=== PATIENT | female | born 1935 | race Caucasian/White ===

== ENCOUNTER 2016-12-03 21:04 | Emergency (ER) | payer MEDICARE, OTHER ==
[~2016-12-03] VITALS: Ht 167.6 cm; Wt 73.5 kg
[2016-12-03 22:11] VITALS: BP 150/78
[2016-12-03] MEDS ORDERED: MORPHINE SULFATE 4 MG/ML SYRG ONE (23:27)
[2016-12-03] MEDS ORDERED: MORPHINE SULFATE 4 MG/ML SYRG IV ONE (23:30)
[2016-12-03] MEDS ORDERED: ONDANSETRON HCL 4 MG/2 ML VIAL IV ONE (23:30)
== END 2016-12-04 02:28 | disposition home or self-care (01) ==
LOC: ER 21:04
DX: S52.132A Displaced fracture of neck of left radius, initial encounter for closed fracture (principal); S52.612A Displaced fracture of left ulna styloid process, initial encounter for closed fracture; K21.9 Gastro-esophageal reflux disease without esophagitis; W19.XXXA Unspecified fall, initial encounter; Y93.89 Activity, other specified; Y99.8 Other external cause status; Y92.89 Other specified places as the place of occurrence of the external cause
CPT/HCPCS: 29125; 73070; 73090; 73100; 73120; 73560; 96374; 96375; 99284; J2270; J2405

== ENCOUNTER 2021-09-28 18:41 | Emergency (ER) | payer MEDICARE ==
[~2021-09-28] VITALS: Ht 160 cm; Wt 68.0 kg
[2021-09-28 18:52] VITALS: BP 134/78
== END 2021-09-30 05:43 | disposition left against medical advice (07) ==
LOC: ER 18:43
DX: R06.02 Shortness of breath (principal); Z53.21 Procedure and treatment not carried out due to patient leaving prior to being seen by health care provider
CPT/HCPCS: 71045; 80053; 84484

== ENCOUNTER 2022-09-09 20:18 | Inpatient (IN) | payer MEDICARE ==
[~2022-09-09] VITALS: Ht 160 cm; Wt 68.1 kg
[2022-09-09 21:19] LABS: Basophils # (auto) 0.1 10 ^3/uL (0-0.2); Basophils % (auto) 1.3 % (0.0-2.0); Eosinophils # (auto) 0.3 10 ^3/uL (0-0.8); Eosinophils % (auto) 3.3 % (0.0-7.0); Hematocrit 43.2 % (36.0-46.0); Hemoglobin 14.7 g/dL (12.2-16.2); Lymphocytes % (auto) 25.3 % (10.0-50.0); Mean Corpuscular Hemoglobin 31.1 pg (28.0-32.0); Mean Corpuscular Volume 91.4 fL (80.0-100.0); Monocytes # (auto) 0.7 10 ^3/uL (0-1.3); Monocytes % (auto) 9.4 % (0.0-12.0); Neutrophils # (auto) 4.8 10 ^3/uL (1.6-8.6); Neutrophils % (auto) 60.7 % (37.0-80.0); Nucleated Red Blood Cells % 0.1 %; Red Blood Cells 4.72 10^6/uL (4.0-5.20); Red Cell Distribution Width 15.1 % (11.8-14.3); White Blood Cell 7.8 10^3/uL (4.4-10.8)
[2022-09-09 21:32] LABS: INR 1.02 (0.9-1.15); Partial Thromboplastin Time 24.1 sec (24.6-33.4)
[2022-09-09 23:02] LABS: Calcium 9.2 mg/dL (8.5-10.1); Potassium 3.8 mmol/L (3.5-5.1)
[2022-09-09 23:05] LABS: Albumin 3.4 g/dL (3.4-5.0); BUN/Creatinine Ratio 21.7; Magnesium 2.1 mg/dL (1.6-2.6)
[2022-09-09] MEDS ORDERED: SODIUM CHLORIDE 0.9% 500 ML IV ONE (23:15)
[2022-09-09] MEDS ORDERED: ONDANSETRON HCL 4 MG/2 ML VIAL IV ONE (23:15)
[2022-09-09] MEDS ORDERED: HYDROmorphone HCL 2 MG/ML VL/or syr IV ONE (23:15)
[2022-09-09] MEDS ORDERED: IOHEXOL 300 MG/ML 100ML BOTTLE IJ ONE (23:18)
[2022-09-10] MEDS ORDERED: DOCUSATE SOD 100 MG CAP PO PRN (04:45)
[2022-09-10] MEDS ORDERED: ACETAMINOPHEN 325 MG TAB PO PRN (04:45)
[2022-09-10] MEDS ORDERED: ALUM & MAG HYDROX-SIMETH LIQ(MAALOX) 30 ML PO PRN (04:45)
[2022-09-10] MEDS ORDERED: HYDROmorphone HCL 2 MG/ML VL/or syr IV PRN ×2 (04:45→14:30)
[2022-09-10] MEDS ORDERED: MORPHINE SULFATE INJ 2 MG/ml SYRG IV PRN (04:45)
[2022-09-10] MEDS ORDERED: ONDANSETRON HCL 4 MG/2 ML VIAL IV PRN (04:45)
[2022-09-10] MEDS ORDERED: HYDROcodone-ACET 5/325MG TAB PO PRN (04:45)
[2022-09-10] MEDS: SODIUM CHLORIDE 0.9% 1,000 ML IV SCH ×2 (05:12→21:47)
[2022-09-10] MEDS ORDERED: ALBUTEROL SULF HFA 90MCG INH 200DOSE IN PRN (05:15)
[2022-09-10 07:23] LABS: Basophils # (auto) 0.1 10 ^3/uL (0-0.2); Basophils % (auto) 0.8 % (0.0-2.0); Eosinophils # (auto) 0.2 10 ^3/uL (0-0.8); Eosinophils % (auto) 2.6 % (0.0-7.0); Hematocrit 37.3 % (36.0-46.0); Hemoglobin 13.1 g/dL (12.2-16.2); Lymphocytes # (auto) 1.7 10 ^3/uL (0.4-5.4); Lymphocytes % (auto) 21.8 % (10.0-50.0); Mean Corpuscular Hemoglobin 32.2 pg (28.0-32.0); Mean Corpuscular Hgb Conc. 35.2 g/dL (32.0-36.0); Mean Corpuscular Volume 91.6 fL (80.0-100.0); Monocytes # (auto) 0.8 10 ^3/uL (0-1.3); Monocytes % (auto) 10.4 % (0.0-12.0); Neutrophils # (auto) 5.1 10 ^3/uL (1.6-8.6); Neutrophils % (auto) 64.4 % (37.0-80.0); Nucleated Red Blood Cells % 0.1 %; Red Blood Cells 4.07 10^6/uL (4.0-5.20); Red Cell Distribution Width 14.6 % (11.8-14.3); White Blood Cell 7.9 10^3/uL (4.4-10.8)
[2022-09-10 07:45] LABS: BUN/Creatinine Ratio 15.3; Calcium 8.6 mg/dL (8.5-10.1); Potassium 4.1 mmol/L (3.5-5.1)
[2022-09-10 08:58] VITALS: BP 102/57
[2022-09-10 09:00] VITALS: BP 102/57
[2022-09-10] MEDS: CHOLECALCIFEROL (VITD3) 2,000 UNIT CAP/TAB PO SCH (10:05)
[2022-09-10] MEDS: ASCORBIC ACID 1,000 MG TAB PO SCH (10:05)
[2022-09-10] MEDS: ZINC SULFATE 220mg CAP or TAB PO SCH (10:05)
[2022-09-10 12:43] VITALS: BP 124/62
[2022-09-10] MEDS ORDERED: CHOL1TAB30 PO (14:34)
[2022-09-10] MEDS ORDERED: LEVO75TA6 PO (14:34)
[2022-09-10 17:00] VITALS: BP 125/51
[2022-09-10 19:30] VITALS: BP 128/73
[2022-09-10] MEDS ORDERED: HYDROcodone-ACET 10/325MG TAB PO PRN (20:30)
[2022-09-10 22:00] VITALS: BP 128/73
[2022-09-11 05:00] VITALS: BP 119/58
[2022-09-11 09:00] VITALS: BP 103/43
[2022-09-11] MEDS: ASCORBIC ACID 1,000 MG TAB PO SCH ×2 (10:18→11:41)
[2022-09-11] MEDS: ZINC SULFATE 220mg CAP or TAB PO SCH (10:18)
[2022-09-11] MEDS: CHOLECALCIFEROL (VITD3) 2,000 UNIT CAP/TAB PO SCH (10:18)
[2022-09-11 13:12] VITALS: BP 110/51
[2022-09-11] MEDS: SODIUM CHLORIDE 0.9% 1,000 ML IV SCH (14:05)
[2022-09-11 16:39] VITALS: BP 128/71
[2022-09-11 22:00] VITALS: BP 125/63
[2022-09-12] MEDS: SODIUM CHLORIDE 0.9% 1,000 ML IV SCH ×2 (00:35→17:28)
[2022-09-12 05:00] VITALS: BP 120/66
[2022-09-12 09:00] VITALS: BP 107/57
[2022-09-12] MEDS: CHOLECALCIFEROL (VITD3) 2,000 UNIT CAP/TAB PO SCH (09:57)
[2022-09-12] MEDS: ZINC SULFATE 220mg CAP or TAB PO SCH (09:57)
[2022-09-12] MEDS: ASCORBIC ACID 1,000 MG TAB PO SCH (09:59)
[2022-09-12 13:00] VITALS: BP 127/70
[2022-09-12 17:00] VITALS: BP 115/52
[2022-09-12 20:00] VITALS: BP 122/61
[2022-09-12 22:00] VITALS: BP 122/61
[2022-09-13 05:00] VITALS: BP 107/65
[2022-09-13] MEDS: CHOLECALCIFEROL (VITD3) 2,000 UNIT CAP/TAB PO SCH (08:41)
[2022-09-13] MEDS: ZINC SULFATE 220mg CAP or TAB PO SCH (08:41)
[2022-09-13] MEDS: ASCORBIC ACID 1,000 MG TAB PO SCH (08:42)
[2022-09-13 09:28] VITALS: BP 126/67
[2022-09-13 12:36] VITALS: BP 139/78
[2022-09-13 12:44] VITALS: BP_SYST 138; BP_SYST 139; BP_DIAS 78
== END 2022-09-13 15:48 | disposition home or self-care (01) | DRG 604 ==
LOC: EDUNIT# 20:18 → ER 20:18 → EDBD 20:18 → OVERFLOW 09-10 04:59 → EAST 09-10 08:53 → TELE-EAST 09-11 12:25
PROVIDERS: ADMIT Hospitalist; ATTEND Nurse Practitioner Acute Care
DX: S01.81XA Laceration without foreign body of other part of head, initial encounter (principal); U07.1 COVID-19; R55 Syncope and collapse; E03.9 Hypothyroidism, unspecified; I10 Essential (primary) hypertension; N73.9 Female pelvic inflammatory disease, unspecified; Z96.611 Presence of right artificial shoulder joint; M19.90 Unspecified osteoarthritis, unspecified site; K21.9 Gastro-esophageal reflux disease without esophagitis; W01.0XXA Fall on same level from slipping, tripping and stumbling without subsequent striking against object, initial encounter; Z82.49 Family history of ischemic heart disease and other diseases of the circulatory system; Z83.3 Family history of diabetes mellitus; Y93.89 Activity, other specified; Y92.89 Other specified places as the place of occurrence of the external cause; Y99.8 Other external cause status
CPT/HCPCS: 36415; 70450; 71045; 71260; 72125; 74177; 80048; 80053; 83735; 83880; 84443; 84484; 85025; 85610; 85730; 87426; 93306; 93886; 95819; 96361; 96374; 96375; 97116; 97163; 97530; G0378; J2405

== ENCOUNTER 2025-01-04 16:01 | Inpatient (IN) | payer MEDICARE ==
[~2025-01-04] VITALS: Ht 157.5 cm; Wt 59.1 kg
[~2025-01-04 16:01] MED LIST: CHOL1TAB30 PO; LEVO75TA6 PO
--- NOTE | 2025-01-04 16:39 | ED.PDOC ---
GI ASSESSMENT HPI Comments 89-year-old female with a history of hypothyroid and arthritis brought in by EMS from home complaining of abdominal pain, nausea, vomiting and generalized weakness. Patient states pain started today, as localized to the right lower quadrant and radiates to the epigastrium and left lower quadrant. She had 1 episode of nausea and vomiting. She denies diarrhea, constipation or dysuria. She states she has had normal bowel movements recently. She denies fever or sick contacts. States she feels generally weak, but is able to ambulate. Chief Complaint: Abdominal Pain Time Seen by MD: 16:30 Primary Care Provider: UNKNOWN Reviewed Notes: Nurses Notes, Medications, Allergies Allergies: Coded Allergies: NO KNOWN ALLERGIES (Unverified , 12/03/16) Home Meds Reported Medications Levothyroxine Sodium (Levothyroxine Sodium) 75 Mcg Tab, 1 TAB PO DAILY 09/10/22 Cholecalciferol (Gnp Vitamin D) 1,000 Unit Tab, 5000 UNIT PO DAILY, TAB 09/10/22 Information Source: Patient, Emergency Med Personnel Mode of Arrival: EMS Timing: Hours Duration: Since onset, Hours Prehospital treatment: None Quality: Aching Vomitus: Bilious Stool: Normal Severity: Moderate Recent: None Recent Hx of: None Pain Location: RLQ, LLQ Associated sign and symptoms: Nausea, Vomiting, Abdominal Pain Past Medical History PAST MEDICAL HISTORY: Arthritis, GERD, Thyroid (Hypo) Past Medical History (Other): Vertigo Surgical History: Denies all surgeries 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 Family History Family History: Reviewed,noncontributory to illness, Unknown Social History Smoker: Non-Smoker Alcohol: Denies ETOH Use Drugs: Denies Drug Use Lives In: Home Constitutional: denies: chills, diaphoresis, fatigue, fever, malaise, sweats, weakness, others EENTM: denies: blurred vision, double vision, ear bleeding, ear discharge, ear drainage, ear pain, ear ringing, eye pain, eye redness, hearing loss, mouth pain, mouth swelling, nasal discharge, nose bleeding, nose congestion, nose pain, photophobia, tearing, throat pain, throat swelling, voice changes, others Respiratory: denies: cough, hemoptysis, orthopnea, SOB at rest, shortness of breath, SOB with excertion, stridor, wheezing, others Cardiovascular: denies: chest pain, dizzy spells, diaphoresis, Dyspnea on exertion, edema, irregular heart beat, left arm pain, lightheadedness, palpitations, PND, syncope, others Gastrointestinal: reports: abdominal pain, nausea, vomiting; denies: abdomen distended, blood streaked bowels, constipated, diarrhea, dysphagia, difficulty swallowing, hematemesis, melena, poor appetite, poor fluid intake, rectal bleeding, rectal pain, others Genitourinary: denies: abnormal vagina bleeding, burning, dyspareunia, dysuria, flank pain, frequency, hematuria, incontinence, pain, , vagina discharge, urgency, others Neurological: denies: dizziness, fainting, headache, left sided numbness, left sided weakness, numbness, paresthesia, pre-existing deficit, right sided numbness, right sided weakness, seizure, speech problems, tingling, tremors, weakness, others Musculoskeletal: denies: back pain, gout, joint pain, joint swelling, muscle p ain, muscle stiffness, neck pain, others Integumetry: denies: bruises, change in color, change in hair/nails, dryness, laceration, lesions, lumps, rash, wounds, others Allergic/Immunocompromised: denies: Difficulty Healing, Frequent Infections, Hives, Itching, others Hematologic/Lymphatic: denies: anemia, blood clots, easy bleeding, easy bruising, swollen glands, others Endocrine: denies: excessive hunger, excessive sweating, excessive thirst, excessive urination, flushing, intolerance to cold, intolerance to heat, unexplained weight gain, unexplained weight loss, others Psychiatric: denies: anxiety, bipolar disorder, depression, hopeless, panic disorder, schizophrenia, sleepless, suicidal, others All Other Systems: Reviewed and Negative Physical Exam General Appearance: No Apparent Distress HEENT: Other (Pupils and face symmetric. Dry mucous membranes.) Neck: Full Range of Motion, Normal Inspection Respiratory: Lungs Clear, No Accessory Muscle Use, No Respiratory Distress, Normal Breath Sounds Cardiovascular: No Edema, No JVD, Regular Rate/Rhythm Breast Exam: Deferred Gastrointestinal: Epigastric, LLQ, RLQ, Soft, Tenderness Genitalia: Deferred Pelvic: Deferred Rectal: Deferred Extremities: Normal inspection, Normal range of motion, Non-tender, No pedal edema Neurologic: Alert (Oriented x4), Normal Affect, Normal Mood, Other (Moves all extremities.) Cerebellar Function: NOT DONE Reflexes: NOT DONE Skin: Dry, Pallor, Warm Lymphatic: NOT DONE EKG EKG : Comments Sinus rhythm, rate 87, normal DE interval, QRS prolonged at 126, QTC prolonged at 479, left axis deviation, possible old inferior or anteroseptal infarct, nons pecific T changes. Was a procedure done? Was a procedure done?: No GI differential Dx Differential Diagnosis: Appendicitis, Constipation, Diverticular disease, Gastritis/PUD, Gastroenteritis, Inflammatory BD, Ischemic Bowel, Pancreatitis, UTI, Dehydration, Diabetes/ DKA, Electrolyte Imbalance, Food Poisoning, Bact erial, Viral, Hypovolemia, Impaction, Renal Failure, Stress Ulcer, Kidney Stone X-Ray, Labs, Meds, VS Vital Signs Date Time Temp Pulse Resp B/P (MAP) Pulse Ox O2 Delivery O2 Flow Rate FiO2 01/04/25 20:21 98.4 102 16 101/84 (90) 93 98.4 01/04/25 18:38 91 16 112/76 01/04/25 18:05 84 16 93 Room Air* 0 21 01/04/25 17:54 100 16 125/88 01/04/25 17:52 100 16 94 Room Air 01/04/25 17:52 98.0 100 16 125/85 (98) 94 98.0 01/04/25 17:34 01/04/25 16:39 87 01/04/25 16:15 87 01/04/25 16:01 97.2 85 16 132/81 (98) 91 97.2 Lab Test 01/04/25 19:40 01/04/25 18:01 Range/Units Troponin I High Sensitivity 7 6 </=34 ng/L White Blood Count 10.3 4.4-10.8 10^3/uL Red Blood Count 4.83 4.0-5.20 10^6/uL Hemoglobin 15.4 12.2-16.2 g/dL Hematocrit 43.2 36.0-46.0 % Mean Corpuscular Volume 89.6 80.0-100.0 fL Mean Corpuscular Hemoglobin 31.8 28.0-32.0 pg Mean Corpuscular Hemoglobin Concent 35.5 32.0-36.0 g/dL Red Cell Distribution Width 15.4 H 11.8-14.3 % Platelet Count 221 140-450 10^3/uL Mean Platelet Volume 8.8 6.9-10.8 fL Neutrophils (%) (Auto) 83.1 H 37.0-80.0 % Lymphocytes (%) (Auto) 10.2 10.0-50.0 % Monocytes (%) (Auto) 6.0 0.0-12.0 % Eosinophils (%) (Auto) 0.2 0.0-7.0 % Basophils (%) (Auto) 0.5 0.0-2.0 % Neutrophils # (Auto) 8.6 1.6-8.6 10 ^3/uL Lymphocytes # (Auto) 1.1 0.4-5.4 10 ^3/uL Monocytes # (Auto) 0.6 0-1.3 10 ^3/uL Eosinophils # (Auto) 0 0-0.8 10 ^3/uL Basophils # (Auto) 0 0-0.2 10 ^3/uL Nucleated Red Blood Cells 0.4 % Sodium Level 139 136-145 mmol/L Potassium Level 4.2 3.5-5.1 mmol/L Chloride Level 104 98-107 mmol/L Carbon Dioxide Level 25 20-31 mmol/L Anion Gap 10 5-15 Blood Urea Nitrogen 11 9-23 mg/dL Creatinine 0.47 L 0.550-1.02 mg/dL Glomerular Filtration Rate Calc 92 >90 mL/min BUN/Creatinine Ratio 23.4 H 10.0-20.0 Serum Glucose 120 H 74-106 mg/dL Lactic Acid Level 1.9 0.4-2.0 mmol/L Calcium Level 9.1 8.7-10.4 mg/dL Total Bilirubin 1.9 H 0.2-1.0 mg/dL Aspartate Amino Transferase (AST) 23 13-40 U/L Alanine Aminotransferase (ALT) 14 7-40 U/L Alkaline Phosphatase 64 46-116 U/L Total Protein 5.6 L 5.7-8.2 g/dL Albumin 3.4 3.2-4.8 g/dL Lipase 17 12-53 U/L Thyroid Stimulating Hormone (TSH) Pending Current Medications Medications (Trade) Dose Ordered Sig/Elizabet Route Start Time Stop Time Status Last Admin Sodium Chloride 1,000 ml @ 1,000 mls/hr Q1H ONCE IV 01/04/25 16:45 01/04/25 17:44 DC 01/04/25 17:42 Ondansetron HCl (Zofran) 4 mg ONCE ONCE IV 01/04/25 16:45 01/04/25 17:09 DC 01/04/25 18:05 Morphine Sulfate 4 mg ONCE ONCE IV 01/04/25 16:45 01/04/25 17:09 DC 01/04/25 17:54 Pantoprazole Sodium (Protonix) 40 mg ONCE ONCE IV 01/04/25 16:45 01/04/25 17:09 DC 01/04/25 17:53 PROCEDURE(s): ABPL - CT AB PEL WO CON-NO ORAL OR IV REASON: rlq pain radiating to epig, n/v ORDER NUMBER(s): [id number], ACCESSION NUMBER(s): [id number] Procedure: CT CT AB PEL WO CON-NO ORAL OR IV 01/04/2025 05:29 PM Indication: rlq pain radiating to epig, n/v Comparison Study: ECIDC on DOS: 09/10/22 Technique: Axial images were obtained and reformatted in coronal and sagittal planes. All CT scans at this medical facility are performed using dose modulatio n techniques as appropriate to a performed exam including the following: Automated exposure control was utilized; adjustment of the MA and/or KV according to patient size; and use of iterative reconstruction technique. CT Dose: CTDI volume is 5.47 mGy. Dose-length product is 265.95 mGy*cm FINDINGS: Lower Chest: Mild bibasilar subsegmental atelectasis. The heart is normal in si ze. Calcification of the mitral annulus and aortic valve. Coronary artery calcification. Minimal pericardial thickening near the apex. Hepatobiliary: Several subcentimeter calcified gallstones are seen. No gallbladder wall thickening. No intrahepatic or extrahepatic ductal dilatation. Spleen: Unremarkable. Pancreas: Unremarkable. Adrenal Glands: Unremarkable. tract: The kidneys are normal in size bilaterally without hydronephrosis or nephrolithiasis. The urinary bladder is unremarkable. GI tract: The stomach is grossly normal in appearance. Mild fluid distention of the small bowel loops measuring 3.2 cm in the transverse. Fecal like material noted in ileal loops. Small bowel loops in the right lower quadrant are collapsed. No mural thickening. No mesenteric edema. The appendix is not seen with certainty. No inflammatory changes noted in the right quadrant. There is si gmoid diverticulosis without diverticulitis. Lymphatics: No mesenteric, retroperitoneal or periportal lymphadenopathy. Vasculature: The abdominal aorta is normal in caliber. Diffuse calcified plaque formation is noted. Pelvic Organs: Unremarkable Bones/soft tissues: No acute abnormality. Degenerative changes of the lumbar spine noted. Small fat-containing umbilical hernia. Other: None. IMPRESSION: 1. Mildly dilated small bowel loops in mid to lower abdomen with a transition point in the right lower quadrant suggestive of bowel obstruction (complete or incomplete) recommend clinical correlation. Further evaluation with small-bowel series with water-soluble contrast could be completed if clinically indicated. 2. Sigmoid diverticulosis without diverticulitis. 3. Cholelithiasis without evidence of cholecystitis. X-Ray, Labs, Meds, VS Comment 89-year-old female with a history of hypothyroidism, arthritis and GERD brought in by EMS from home complaining of abdominal pain, nausea and vomiting Vitals remarkable for oxygen saturation 91% on room air Exam remarkable for dry mucous membranes and right greater than left lower quadrant tenderness and epigastric tenderness to palpation Rhythm strip independently interpreted by me: Sinus rhythm, rate 87, no ectopy. CT abdomen and pelvis IMPRESSION: 1. Mildly dilated small bowel loops in mid to lower abdomen with a transition point in the right lower quadrant suggestive of bowel obstruction (complete or incomplete) recommend clinical correlation. Further evaluation with small-bowel series with water-soluble contrast could be completed if clinically indicated. 2. Sigmoid diverticulosis without diverticulitis. 3. Cholelithiasis without evidence of cholecystitis. CBC, CMP, lipase, troponin, UA, lactate Patient treated with the following in the ED: 1 L 0.9 normal saline IV bolus, morphine 4 mg IV, Zofran 4 mg IV, Protonix 40 mg IV On re-evaluation, patient states pain has improved and she denies nausea. Plan is to admit the patient for pain and emesis control and small bowel series to rule out obstruction. Time of 1ST Reevaluation: 17:00 Reevaluation 1ST: Unchanged Patient Education/Counseling: Diagnosis, Treatment, Prognosis Family Education/Counseling: No Family Present Departure 1 Departure Time of Disposition: 18:34 Impression: Primary Impression: Abdominal pain Qualified Codes: R10.9 - Unspecified abdominal pain Additional Impressions: Nausea and vomiting Qualified Codes: R11.2 - Nausea with vomiting, unspecified Small bowel obstruction Disposition: ADMITTED INPATIENT Admit to: Med Surg Condition: Guarded Critical Care Note Critical Care Time?: No Stability Stability form required: No Heart Score Heart Score: Heart Score Response (Comments) Value History N/A 0 EKG N/A 0 Age N/A 0 Risk Factors N/A 0 Troponin N/A 0 Total 0 I personally scribed for DIANA TONEY MD ([email or web address]) on 01/04/25 at 16:39. Electronically submitted by Kit Thompson ([email or web address]). DIANA TONEY MD Jan 04, 2025 16:39
[2025-01-04] MEDS: SODIUM CHLORIDE 0.9% 1,000 ML IV ONE (17:42)
[2025-01-04] MEDS: PANTOPRAZOLE 40 MG/10 ML VIAL INJ IV ONE (17:53)
[2025-01-04] MEDS: MORPHINE SULFATE 4 MG/ML SYR/VIAL IV ONE (17:54)
[2025-01-04 18:05] VITALS: PULSE 84; RESP 16; O2SAT 93
[2025-01-04] MEDS: ONDANSETRON HCL 4 MG/2 ML VIAL IV ONE (18:05)
--- NOTE | 2025-01-04 18:30 | DVH ---
Procedure: CT CT AB PEL WO CON-NO ORAL OR IV 01/04/2025 05:29 PM Indication: rlq pain radiating to epig, n/v Comparison Study: ECID on DOS: 09/10/22 Technique: Axial images were obtained and reformatted in coronal and sagittal planes. All CT scans at this medical facility are performed using dose modulation techniques as appropriate to a performed e xam including the following: Automated exposure control was utilized; adjustment of the MA and/or KV according to patient size; and use of iterative reconstruction technique. CT Dose: CTDI volume is 5.4 7 mGy. Dose-length product is 265.95 mGy*cm FINDINGS: Lower Chest: Mild bibasilar subsegmental atelectasis. The heart is normal in size. Calcification of the mitral annulus and aortic valve. Coronary artery calcification. Minimal pericardial thickening n ear the apex. Hepatobiliary: Several subcentimeter calcified gallstones are seen. No gallbladder wall thickening. N o intrahepatic or extrahepatic ductal dilatation. Spleen: Unremarkable. Pancreas: Unremarkable. Adrenal Glands: Unremarkable. tract: The kidneys are normal in size bilaterally without hydronephrosis or nephrolithiasis. The u rinary bladder is unremarkable. GI tract: The stomach is grossly normal in appearance. Mild fluid distention of the small bowel loops measuring 3.2 cm in the transverse. Fecal like material noted in ileal loops. Small bowel loops in t he right lower quadrant are collapsed. No mural thickening. No mesenteric edema. The appendix is not seen with certainty. No inflammatory changes noted in the right quadrant. There is sigmoid diverticu losis without diverticulitis. Lymphatics: No mesenteric, retroperitoneal or periportal lymphadenopathy. Vasculature: The abdominal aorta is normal in caliber. Diffuse calcified plaque formation is noted. Pelvic Organs: Unremarkable Bones/soft tissues: No acute abnormality. Degenerative changes of the lumbar spine noted. Small fat-c ontaining umbilical hernia. Other: None. IMPRESSION: 1. Mildly dilated small bowel loops in mid to lower abdomen with a transition point in the right lowe r quadrant suggestive of bowel obstruction (complete or incomplete) recommend clinical correlation. Further evaluation with small-bowel series with water-soluble contrast could be completed if clinical ly indicated. 2. Sigmoid diverticulosis without diverticulitis. 3. Cholelithiasis without evidence of cholecystitis.
[2025-01-04 18:34] LABS: Basophils # (auto) 0 10 ^3/uL (0-0.2); Basophils % (auto) 0.5 % (0.0-2.0); Eosinophils # (auto) 0 10 ^3/uL (0-0.8); Eosinophils % (auto) 0.2 % (0.0-7.0); Hematocrit 43.2 % (36.0-46.0); Hemoglobin 15.4 g/dL (12.2-16.2); Lymphocytes # (auto) 1.1 10 ^3/uL (0.4-5.4); Lymphocytes % (auto) 10.2 % (10.0-50.0); Mean Corpuscular Hemoglobin 31.8 pg (28.0-32.0); Mean Corpuscular Hgb Conc. 35.5 g/dL (32.0-36.0); Mean Corpuscular Volume 89.6 fL (80.0-100.0); Monocytes # (auto) 0.6 10 ^3/uL (0-1.3); Neutrophils # (auto) 8.6 10 ^3/uL (1.6-8.6); Neutrophils % (auto) 83.1 % (37.0-80.0); Nucleated Red Blood Cells % 0.4 %; Platelet Count (auto) 221 10^3/uL (140-450); Red Blood Cells 4.83 10^6/uL (4.0-5.20); Red Cell Distribution Width 15.4 % (11.8-14.3); White Blood Cell 10.3 10^3/uL (4.4-10.8)
[2025-01-04 18:46] LABS: Alanine Aminotransferase 14 U/L (7-40); Albumin 3.4 g/dL (3.2-4.8); Alkaline Phosphatase 64 U/L (46-116); Anion Gap 10 (5-15); Aspartate Aminotransferase 23 U/L (13-40); BUN/Creatinine Ratio 23.4 (10.0-20.0); Blood Urea Nitrogen 11 mg/dL (9-23); Calcium 9.1 mg/dL (8.7-10.4); Carbon Dioxide 25 mmol/L (20-31); Chloride 104 mmol/L (98-107); Lipase 17 U/L (12-53); Potassium 4.2 mmol/L (3.5-5.1); Sodium 139 mmol/L (136-145)
[2025-01-04 18:48] LABS: Bilirubin, Total 1.9 mg/dL (0.2-1.0); Glucose 120 mg/dL (74-106); Total Protein 5.6 g/dL (5.7-8.2)
--- NOTE | 2025-01-04 19:01 | ECG ---
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
[2025-01-04] MEDS ORDERED: ONDANSETRON HCL 4 MG/2 ML VIAL IV PRN ×2 (19:45→22:00)
[2025-01-04] MEDS ORDERED: D5W/SOD CHL 0.45% 1,000 ML IV ONE (19:45)
[2025-01-04] MEDS ORDERED: MORPHINE SULFATE INJ 2 MG/ml SYRG IV PRN (19:45)
--- NOTE | 2025-01-04 20:50 | DVH ---
EXAM: CT HEAD WITHOUT CONTRAST INDICATION: s/p mechanical fall and hit her head TECHNIQUE: CT of the head without intravenous contrast. Radiation Dose Information: CT Dose: CTDI volume is 51.65 mGy. Dose-length product is 1017.98 mGy*cm The dose indicators for CT are the volume Computed Tomography (CT) Dose Index (CTDIvol) and the Dose Length Product (DLP), and are measured in units of mGy and mGy-cm, respectively. These indicators are not patient dose, but values generated from the CT scanner acquisition factors. The report includes radiation exposure data for exposures received during this examination. COMPARISON: HEAD WITHOUT CONTRAST on DOS: 09/09/22 FINDINGS: There is no evidence of acute intracranial hemorrhage, extra-axial collection, mass effect, midline s hift, herniation or hydrocephalus. The ventricles, sulci and cisterns are age appropriate. The so-white differentiation is intact. Patchy periventricular and subcortical white matter hypoattenuation is nonspecific but may be related to small vessel ischemic disease. The visualized paranasal sinuses and mastoid air cells are clear. The surrounding soft tissues and osseous structures are unremarkable. IMPRESSION: 1. No acute intracranial hemorrhage 2. No CT findings of territorial ischemia. 3. No CT findings of displaced skull fracture.
--- NOTE | 2025-01-04 20:56 | DVH ---
CHEST RADIOGRAPH Indication: right lower crackles Technique: Single frontal view of the chest was obtained Comparison: CHEST PORTABLE on DOS: 09/09/22, CXRP on DOS: 09/09/22, CHEST PORTABLE on DOS: 09/28/21 FINDINGS: Lines and Tubes: None Lungs: No focal consolidation. Pleura: No effusion. No pneumothorax. 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 No acute cardiopulmonary disease. 2. No significant change from 09/09/2022.
[2025-01-04 21:30] VITALS: BP 112/69; PULSE 85; RESP 18; TEMP 97.6; O2SAT 92
--- NOTE | 2025-01-04 21:46 | DVHHPRES ---
History of Present Illness Resident Creating Document: JHAJCAROLINA Maria RESIDENT History of Present Illness Patient is a 89-year-old female with a past medical history of hypothyroidism presented to the hospital with a chief complaint of abdominal pain and vomiting. Patient reports that since the past 2 days she has been having abdominal pain which is diffuse, mild to moderate in intensity occurring in intermittent episodes, has diffuse tenderness on palpation, associated with 2 episode of vomiting in the morning today which did not have any blood. Patient reports having 1 bowel movement yesterday and 1 in the morning today. Patient denies diarrhea, recent sick contacts, travel, eating food outside of the normal. Patient did not report of any blood in the stool or melena. Of note patient reported that 2 days ago while at home she fell in her bedroom and hit her head when she fell following which she did not report of headache or vision changes and denied any weakness. Patient denies any other complaints of chest pain, cough, dysuria, fever, chills, any history of abdominal surgery. Past medical history: Hypothyroidism Past surgical history: Right arm surgery with right shoulder prosthesis Social history: Patient lives with the son and denies smoking, alcohol, drug use Home medications: levothyroxine 75 mcg daily Review of Systems Review of Systems Reports mild abdominal pain Denies any episode of vomiting since the morning No dizziness, chest pain, headache, shortness of breath Constitutional: No: Chills Allergies: Coded Allergies: NO KNOWN ALLERGIES (Unverified , 12/03/16) Medications Current Medications Medications Dose Ordered Sig/Elizabet Route Start Time Stop Time Status Last Admin Dose Admin Pantoprazole Sodium 40 mg DAILY IV 01/05/25 10:00 UNV Ondansetron HCl 4 mg Q6HPRN PRN IV 01/04/25 19:45 UNV Morphine Sulfate 2 mg Q6HPRN PRN IV 01/04/25 19:45 UNV Exam Vital Signs Vital Signs Date Time Temp Pulse Resp B/P (MAP) Pulse Ox O2 Delivery O2 Flow Rate FiO2 01/04/25 20:21 98.4 102 16 101/84 (90) 93 98.4 01/04/25 18:05 Room Air* 0 21 Exam Constitutional: Patient was alert and oriented to time, place and person and does not appear to be in acute distress Gen - no pallor, no icterus, no cyanosis, no clubbing, no LAD, no edema . Skin - Patients skin is warm and dry. HEENT - normocephalic, atraumatic, moist mucous membranes. Neck - full ROM, no LAD, no JVD Pulmonary - B/L equal air entry, right lower lung inspiratory crackles , no wheezing, no stridor. cardiovascular - regular S1,S2 heard, no added sounds, no murmurs heard. GI - soft abdomen with mild diffuse tenderness to palpation. no hepatospleenomegaly. Bowel sounds normoactive Neurological - Bilateral upper extremity strength 5/5, bilateral lower extremity strength 5/5, no facial droop, normal speech, no tremor, no sensory deficiets. Labs/Xrays Labs Test 01/04/25 19:40 01/04/25 18:01 Range/Units Troponin I High Sensitivity 7 </=34 ng/L White Blood Count 10.3 4.4-10.8 10^3/uL Red Blood Count 4.83 4.0-5.20 10^6/uL Hemoglobin 15.4 12.2-16.2 g/dL Hematocrit 43.2 36.0-46.0 % Mean Corpuscular Volume 89.6 80.0-100.0 fL Mean Corpuscular Hemoglobin 31.8 28.0-32.0 pg Mean Corpuscular Hemoglobin Concent 35.5 32.0-36.0 g/dL Red Cell Distribution Width 15.4 H 11.8-14.3 % Platelet Count 221 140-450 10^3/uL Mean Platelet Volume 8.8 6.9-10.8 fL Neutrophils (%) (Auto) 83.1 H 37.0-80.0 % Lymphocytes (%) (Auto) 10.2 10.0-50.0 % Monocytes (%) (Auto) 6.0 0.0-12.0 % Eosinophils (%) (Auto) 0.2 0.0-7.0 % Basophils (%) (Auto) 0.5 0.0-2.0 % Neutrophils # (Auto) 8.6 1.6-8.6 10 ^3/uL Lymphocytes # (Auto) 1.1 0.4-5.4 10 ^3/uL Monocytes # (Auto) 0.6 0-1.3 10 ^3/uL Eosinophils # (Auto) 0 0-0.8 10 ^3/uL Basophils # (Auto) 0 0-0.2 10 ^3/uL Nucleated Red Blood Cells 0.4 % Sodium Level 139 136-145 mmol/L Potassium Level 4.2 3.5-5.1 mmol/L Chloride Level 104 98-107 mmol/L Carbon Dioxide Level 25 20-31 mmol/L Anion Gap 10 5-15 Blood Urea Nitrogen 11 9-23 mg/dL Creatinine 0.47 L 0.550-1.02 mg/dL Glomerular Filtration Rate Calc 92 >90 mL/min BUN/Creatinine Ratio 23.4 H 10.0-20.0 Serum Glucose 120 H 74-106 mg/dL Lactic Acid Level 1.9 0.4-2.0 mmol/L Calcium Level 9.1 8.7-10.4 mg/dL Total Bilirubin 1.9 H 0.2-1.0 mg/dL Aspartate Amino Transferase (AST) 23 13-40 U/L Alanine Aminotransferase (ALT) 14 7-40 U/L Alkaline Phosphatase 64 46-116 U/L Total Protein 5.6 L 5.7-8.2 g/dL Albumin 3.4 3.2-4.8 g/dL Lipase 17 12-53 U/L Thyroid Stimulating Hormone (TSH) 1.27 0.55-4.78 uIU/mL Assessment/Plan Assessment/Plan Assessment Acute abdominal pain with the vomiting ? Complete versus partial small-bowel obstruction ? Gastroenteritis likely viral H/o hypothyroidism Cholelithiasis Sigmoid diverticulosis S/p mechanical fall CT abdomen pelvis without contrast IMPRESSION: 1. Mildly dilated small bowel loops in mid to lower abdomen with a transition point in the right lower quadrant suggestive of bowel obstruction (complete or incomplete) recommend clinical correlation. Further evaluation with small-bowel series with water-soluble contrast could be completed if clinically indicated. 2. Sigmoid diverticulosis without diverticulitis. 3. Cholelithiasis without evidence of cholecystitis. Head CT IMPRESSION: 1. No acute intracranial hemorrhage 2. No CT findings of territorial ischemia. 3. No CT findings of displaced skull fracture. Plan - Gastrografin small bowel series - surgical consult - patient was NPO with a NG tube to gravity - IV Protonix and ondansetron - D5 half NS maintenance fluid Goals of care discussed with the patient for over 31 minutes. Full code Plan discussed with Dr. Herbert Plan discussed with: Patient My Orders Orders - CAROLINA GALICIA Procedure Category Date Status Time Admit ADMIT 01/04/25 Transmitted 19:33 Oxygen By Nasal RT 01/04/25 Transmitted Cannula 19:33 Stat Ekg For Chest ELIAZAR 01/04/25 In Process Pain 19:33 Npo Except Ice Chips ORDERS 01/04/25 Transmitted 19:[address] 01/04/25 Resulted 19:33 D5w/Sod Chl 0.45% PHA 01/04/25 Logged (D5w 1/2ns) 19:45 Chest Xray 1 View XY 01/04/25 Resulted 19:33 Pantoprazole PHA 01/05/25 Logged (Protonix) 10:00 Ondansetron Hcl PHA 01/04/25 Logged (Zofran) 19:45 * Surgical Consult CONS 01/04/25 Transmitted Ng To [facility] ELIAZAR 01/04/25 In Process 19:33 Basic Metabolic Panel LAB 01/05/25 Verified 04:00 Complete Blood Count LAB 01/05/25 Verified 04:00 PTPTT LAB 01/05/25 Verified 04:00 Morphine Sulfate PHA 01/04/25 Logged Injection 19:45 Small Bowel Series-W XY 01/05/25 Logged Gastrogra 08:00 Date of Service: Jan 04, 2025 Billing Provider: MARIA DE JESUS HERBERT MD Common Visit Codes: [id number] DISCH DAY <30MIN CAROLINA GALICIA RESIDENT Jan 04, 2025 21:46 MARIA DE JESUS HERBERT MD Jan 07, 2025 10:47
[2025-01-04 22:26] VITALS: BP 128/83; PULSE 67; RESP 17; TEMP 97.6; O2SAT 95
[2025-01-04] MEDS: D5W/SOD CHL 0.45% 1,000 ML IV ONE (23:26)
[2025-01-05] VITALS (7 sets, daily range): BP systolic 117–138; BP diastolic 63–77; PULSE 78–91; RESP 16–20; TEMP 97.5–97.9; O2SAT 90–95
[2025-01-05 02:05] LABS: Urine Bacteria None Seen /hpf (None Seen)
[2025-01-05 02:18] LABS: Urine Blood Negative /uL (Negative); Urine Clarity Turbid (Clear); Urine Color Yellow (Yellow); Urine Mucus FEW (None Seen); Urine Protein, UAD TRACE (Negative); Urine Specific Gravity 1.027 (1.001-1.035); Urine Squamous Epithelial Cell FEW /hpf (<5); Urine Urobilinogen 4 mg/dL (Negative); Urine WBC 154 /HPF (0-5); Urine pH 5.5 (5.0-9.0)
--- NOTE | 2025-01-05 02:30 | DVH ---
CHEST RADIOGRAPH Indication: Check placement of NG tube Technique: Single frontal view of the chest was obtained COMPARISON: XY CHEST XRAY 1 VIEW on DOS: 01/04/25, CHEST PORTABLE on DOS: 09/09/22, CXRP on DOS: 09/09, CHEST PORTABLE on DOS: 09/28/21 FINDINGS: Lines and Tubes: Enteric catheter tip noted at the level of the gastroesophageal junction. Lungs: Clear Pleura: No effusion. No pneumothorax. Cardiomediastinal contours: Unremarkable Bones: Unremarkable. 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 No evidence of complication. IMPRESSION: 1. No acute disease. 2. Enteric catheter tip at the level of the gastroesophageal junction.
[2025-01-05] MEDS: PANTOPRAZOLE 40 MG/10 ML VIAL INJ IV SCH (09:06)
[2025-01-05] MEDS: ENOXAPARIN SOD 40 MG/0.4 ML SYRINGE SC SCH (09:07)
[2025-01-05] MEDS: GASTROGRAFIN 120 ML SOL ONE (09:58)
[2025-01-05] MEDS ORDERED: PANTOPRAZOLE 40 MG/10 ML VIAL INJ IV SCH (10:00)
[2025-01-05] MEDS ORDERED: ENOXAPARIN SOD 40 MG/0.4 ML SYRINGE SC SCH (10:00)
[2025-01-05] MEDS: MORPHINE SULFATE INJ 2 MG/ml SYRG IV PRN (12:07)
--- NOTE | 2025-01-05 12:55 | DVH ---
XY CHEST XRAY 1 VIEW, HISTORY: Placement of NG tube COMPARISON: XY CHEST XRAY 1 VIEW on DOS: 01/05/25, XY CHEST XRAY 1 VIEW on DOS: 01/04/25, CHEST PORTABL E on DOS: 09/09/22 XY CHEST XRAY 1 VIEW on DOS: 01/05/25, XY CHEST XRAY 1 VIEW on DOS: 01/04/25, CHEST PORTABLE on DOS: TECHNICAL DATA: 1 view of the chest was obtained. FINDINGS: Lines and tubes: Cardiomediastinal silhouette: normal Pulmonary vasculature: normal Lung expansion: normal Lung airspace: normal Lung interstitium: normal Pleura: normal Pneumothorax: no Bones: Older hardware seen. Other: no IMPRESSION: Enteric tube projects in the duodenum.
[2025-01-05 15:01] LABS: Basophils # (auto) 0 10 ^3/uL (0-0.2); Basophils % (auto) 0.4 % (0.0-2.0); Eosinophils # (auto) 0.1 10 ^3/uL (0-0.8); Hematocrit 41.2 % (36.0-46.0); Hemoglobin 14.6 g/dL (12.2-16.2); Lymphocytes # (auto) 0.9 10 ^3/uL (0.4-5.4); Lymphocytes % (auto) 8.6 % (10.0-50.0); Mean Corpuscular Hemoglobin 31.9 pg (28.0-32.0); Mean Corpuscular Hgb Conc. 35.4 g/dL (32.0-36.0); Monocytes # (auto) 0.9 10 ^3/uL (0-1.3); Monocytes % (auto) 9.1 % (0.0-12.0); Neutrophils # (auto) 8.4 10 ^3/uL (1.6-8.6); Neutrophils % (auto) 80.9 % (37.0-80.0); Nucleated Red Blood Cells % 0.1 %; Platelet Count (auto) 202 10^3/uL (140-450); Red Blood Cells 4.58 10^6/uL (4.0-5.20); Red Cell Distribution Width 15.7 % (11.8-14.3); White Blood Cell 10.3 10^3/uL (4.4-10.8)
[2025-01-05 15:16] LABS: Albumin 3.4 g/dL (3.2-4.8); Alkaline Phosphatase 56 U/L (46-116); Anion Gap 9 (5-15); Aspartate Aminotransferase 18 U/L (13-40); BUN/Creatinine Ratio 16.4 (10.0-20.0); Calcium 9.4 mg/dL (8.7-10.4); Carbon Dioxide 28 mmol/L (20-31); Chloride 103 mmol/L (98-107); Potassium 3.9 mmol/L (3.5-5.1); Sodium 140 mmol/L (136-145)
[2025-01-05] MEDS: LACTATED RINGER'S 1,000 ML IV ONE (15:20)
[2025-01-05 15:27] LABS: Alanine Aminotransferase 9 U/L (7-40); Bilirubin, Total 1.9 mg/dL (0.2-1.0); Blood Urea Nitrogen 9 mg/dL (9-23); Glucose 137 mg/dL (74-106); Total Protein 5.7 g/dL (5.7-8.2)
--- NOTE | 2025-01-05 18:35 | DVH ---
Procedure: XY SMALL BOWEL SERIES-W GASTROGRA Reason for study/Clinical History: Rule out small-bowel obstruction. Comparison Study: CT of the abdomen and pelvis dated 01/04/2025. Technique: Single contrast small bowel series performed. A total of 90 mL Gastrografin was administer ed for the examination. FINDINGS/IMPRESSION: Initial patient transporter view of the abdomen and pelvis demonstrates gas filled moderately distended loops of sm all bowel, most prominent in the right hemiabdomen with relative paucity of gas in the colon. Contras t was administered through a nasogastric tube into the stomach. Contrast passed into the proximal sm all bowel without significant delay. There is slow passage of contrast through the small bowel, which is moderately dilated. There appears to be some contrast visualized in the colon on the 3 hour and 5 hour images. Contrast is identified within the colon by 3 hours. This represents a delayed small bowel transit ti me, suspect partial small bowel obstruction or ileus. Recommend follow-up portable abdominal radiogra ph in the morning to evaluate for further passage of contrast. Correlate with clinical findings.
--- NOTE | 2025-01-05 20:05 | DVHPN2 ---
Subjective painet npo, some abd pain still present Reviewed: H&P Changes from previous H/P or p: No Changes General: Per HPI Objective Vitals Vital Signs Date Time Temp Pulse Resp B/P (MAP) Pulse Ox O2 Delivery O2 Flow Rate FiO2 01/05/25 17:00 97.5 78 18 138/68 (91) 90 97.5 01/05/25 08:00 Room Air* 0 21 Intake/Output Intake and Output 01/05/25 07:00 Intake Total 525 ml Output Total 40 ml Balance 485 ml Intake Oral 0 ml IV Total 525 ml Output Urine Total 40 ml # Voids 2 # Bowel Movements 1 Exam Constitutional: Patient was alert and oriented to time, place and person and does not appear to be in acute distress Gen - no pallor, no icterus, no cyanosis, no clubbing, no LAD, no edema . Skin - Patients skin is warm and dry. HEENT - normocephalic, atraumatic, moist mucous membranes. Neck - full ROM, no LAD, no JVD Pulmonary - B/L equal air entry, right lower lung inspiratory crackles , no wheezing, no stridor. cardiovascular - regular S1,S2 heard, no added sounds, no murmurs heard. GI - soft abdomen with mild diffuse tenderness to palpation. no hepatospleenomegaly. Bowel sounds normoactive Neurological - Bilateral upper extremity strength 5/5, bilateral lower extremity strength 5/5, no facial droop, normal speech, no tremor, no sensory deficiets. Medications Current Medications Medications Dose Ordered Sig/Elizabet Route Start Time Stop Time Status Last Admin Dose Admin Pantoprazole Sodium 40 mg DAILY IV 01/05/25 10:00 01/05/25 09:06 40 MG Ondansetron HCl 4 mg Q6HPRN PRN IV 01/04/25 22:00 Morphine Sulfate 2 mg Q6HPRN PRN IV 01/04/25 22:00 01/05/25 12:07 2 MG Enoxaparin Sodium 40 mg DAILY SC 01/05/25 10:00 01/05/25 09:07 40 MG Laboratory Results Laboratory Tests 01/05/25 14:47 Chemistry Test 01/05/25 14:47 Albumin 3.4 g/dL (3.2-4.8) Calcium Level 9.4 mg/dL (8.7-10.4) Total Protein 5.7 g/dL (5.7-8.2) LFT Test 01/05/25 14:47 Alanine Aminotransferase (ALT) 9 U/L (7-40) Alkaline Phosphatase 56 U/L (46-116) Aspartate Amino Transferase (AST) 18 U/L (13-40) Total Bilirubin 1.9 mg/dL (0.2-1.0) H Urinalysis Test 01/05/25 01:57 Urine Color Yellow (Yellow) Urine Clarity Turbid (Clear) H Urine pH 5.5 (5.0-9.0) Urine Specific [place] 1.027 (1.001-1.035) Urine Protein Trace (Negative) H Urine Ketones 1+ (Negative) H Urine Blood Negative /uL (Negative) Urine Nitrite Negative (Negative) Urine Bilirubin Negative (Negative) Urine Urobilinogen 4 mg/dL (Negative) H Urine Leukocyte Esterase 3+ /uL (Negative) Urine RBC 19 /hpf (0 - 4) Urine Microscopic WBC 154 /HPF (0-5) H Urine Squamous Epithelial Cells Few /hpf (<5) Urine Calcium Oxalate Crystals Few (None Seen) Urine Bacteria None seen /hpf (None Seen) Urine Mucus Few (None Seen) Urine Glucose Trace mg/dL (Normal) Microbiology Microbiology Date/Time Source Procedure Growth Status 01/04/25 18:01 Blood Blood Culture - Preliminary NO GROWTH AFTER 24 HOURS OF INCUBATION. Resulted Labs and/or images reviewed: Labs reviewed by me, Image(s) reviewed by me Assessment/Plan Assessment/Plan 01/05-patient admitted for SBO, NG tube inserted on intermittent suction. Patient doing okay, still has some abdominal pain. IV fluids continuing. Pending surgical eval. Acute abdominal pain with the vomiting ? Complete versus partial small-bowel obstruction ? Gastroenteritis likely viral H/o hypothyroidism Cholelithiasis Sigmoid diverticulosis S/p mechanical fall Plan - Gastrografin small bowel series -- delayed small bowel transit time, suspect partial small bowel obstruction or ileus - surgical consult - patient was NPO with a NG tube to gravity - IV Protonix and ondansetron - D5 half NS maintenance fluid Goals of care discussed with the patient for over 31 minutes. Full code Plan discussed with: Patient My Orders Orders - MICHELLE CUELLO MD Procedure Category Date Status Time Lactated Ringer's PHA 01/05/25 In Process 14:30 Date of Service: Jan 05, 2025 Billing Provider: MICHELLE CUELLO MD Common Visit Codes: [id number] INP/OBS CARE(HIGH) MICHELLE CUELLO MD Jan 05, 2025 20:05
[2025-01-06] VITALS (7 sets, daily range): BP systolic 106–135; BP diastolic 57–79; PULSE 87–97; RESP 17–18; TEMP 97.5–98.5; O2SAT 91–95
[2025-01-06 05:55] LABS: Albumin 3.5 g/dL (3.2-4.8); Alkaline Phosphatase 55 U/L (46-116); Anion Gap 9 (5-15); Aspartate Aminotransferase 18 U/L (13-40); BUN/Creatinine Ratio 18.5 (10.0-20.0); Blood Urea Nitrogen 10 mg/dL (9-23); Calcium 9.8 mg/dL (8.7-10.4); Carbon Dioxide 29 mmol/L (20-31); Chloride 101 mmol/L (98-107); Potassium 3.7 mmol/L (3.5-5.1); Sodium 139 mmol/L (136-145)
[2025-01-06 05:57] LABS: Alanine Aminotransferase < 9 U/L (7-40); Bilirubin, Total 2.6 mg/dL (0.2-1.0); Glucose 108 mg/dL (74-106); Total Protein 5.5 g/dL (5.7-8.2)
[2025-01-06 05:58] LABS: Basophils # (auto) 0 10 ^3/uL (0-0.2); Basophils % (auto) 0.4 % (0.0-2.0); Eosinophils # (auto) 0.1 10 ^3/uL (0-0.8); Eosinophils % (auto) 0.7 % (0.0-7.0); Hematocrit 39.9 % (36.0-46.0); Hemoglobin 14.2 g/dL (12.2-16.2); Lymphocytes % (auto) 8.7 % (10.0-50.0); Mean Corpuscular Hemoglobin 31.8 pg (28.0-32.0); Mean Corpuscular Hgb Conc. 35.5 g/dL (32.0-36.0); Mean Corpuscular Volume 89.5 fL (80.0-100.0); Monocytes # (auto) 1.2 10 ^3/uL (0-1.3); Monocytes % (auto) 9.7 % (0.0-12.0); Neutrophils # (auto) 9.6 10 ^3/uL (1.6-8.6); Neutrophils % (auto) 80.5 % (37.0-80.0); Nucleated Red Blood Cells % 0.6 %; Platelet Count (auto) 214 10^3/uL (140-450); Red Blood Cells 4.46 10^6/uL (4.0-5.20); Red Cell Distribution Width 15.4 % (11.8-14.3); White Blood Cell 11.9 10^3/uL (4.4-10.8)
--- NOTE | 2025-01-06 10:43 | DVHPN2 ---
Progress Note Date Seen: Jan 06, 2025 Medical Necessity Reason Pt with a Central, PICC or Fol: No Objective vital signs Vital Sign Date Time Temp Pulse Resp B/P (MAP) Pulse Ox O2 Delivery O2 Flow Rate FiO2 01/06/25 09:00 97.8 87 18 135/79 (97) 92 97.8 01/06/25 08:00 Room Air* 0 21 Total Intake and Output 01/05/25 01/05/25 01/06/25 15:00 23:00 07:00 Intake Total 0 ml Output Total 900 ml 50 ml Balance -900 ml -50 ml medications Current Medications Medications Dose Ordered Sig/Elizabet Route Start Time Stop Time Status Last Admin Dose Admin Pantoprazole Sodium 40 mg DAILY IV 01/05/25 10:00 01/05/25 09:06 40 MG Ondansetron HCl 4 mg Q6HPRN PRN IV 01/04/25 22:00 Morphine Sulfate 2 mg Q6HPRN PRN IV 01/04/25 22:00 01/05/25 12:07 2 MG Enoxaparin Sodium 40 mg DAILY SC 01/05/25 10:00 01/05/25 09:07 40 MG laboratory and microbiology Laboratory Tests 01/06/25 04:59 Test 01/06/25 04:59 Range/Units Serum Glucose 108 H 74-106 mg/dL Problem List/Assessment/Plan Problem List/Assessment/Plan 01/06/25 DOES NOT FEEL WELL, ABDOMEN NON DUSTENDED, MINIMALLY TENDER, HYPERBILIRUBINEMIA, LEUKOCYTOSIS, PARTIAL SMALL BOWEL OBSTRUCTION, WILL GET HIDA SCAN Plan discussed with: Patient PAMELA CASAS MD Jan 06, 2025 10:43
[2025-01-06] MEDS: cefTRIAXone 1GM/50ML D5W 50 ML IV ONE (17:05)
--- NOTE | 2025-01-06 18:04 | DVHPN2 ---
Subjective painet npo, some abd pain still present Reviewed: H&P Changes from previous H/P or p: No Changes General: Per HPI Objective Vitals Vital Signs Date Time Temp Pulse Resp B/P (MAP) Pulse Ox O2 Delivery O2 Flow Rate FiO2 01/06/25 17:00 98.2 89 18 121/71 (88) 91 98.2 01/06/25 08:00 Room Air* 0 21 Intake/Output Intake and Output 01/06/25 07:00 Intake Total 0 ml Output Total 950 ml Balance -950 ml Intake Oral 0 ml Gastric Drainage Total 950 ml # Voids 2 Exam Constitutional: Patient was alert and oriented to time, place and person and does not appear to be in acute distress Gen - no pallor, no icterus, no cyanosis, no clubbing, no LAD, no edema . Skin - Patients skin is warm and dry. HEENT - normocephalic, atraumatic, moist mucous membranes. Neck - full ROM, no LAD, no JVD Pulmonary - B/L equal air entry, right lower lung inspiratory crackles , no wheezing, no stridor. cardiovascular - regular S1,S2 heard, no added sounds, no murmurs heard. GI - soft abdomen with mild diffuse tenderness to palpation. no hepatospleenomegaly. Bowel sounds normoactive Neurological - Bilateral upper extremity strength 5/5, bilateral lower extremity strength 5/5, no facial droop, normal speech, no tremor, no sensory deficiets. Medications Current Medications Medications Dose Ordered Sig/Elizabet Route Start Time Stop Time Status Last Admin Dose Admin Pantoprazole Sodium 40 mg DAILY IV 01/05/25 10:00 01/05/25 09:06 40 MG Ondansetron HCl 4 mg Q6HPRN PRN IV 01/04/25 22:00 Morphine Sulfate 2 mg Q6HPRN PRN IV 01/04/25 22:00 01/05/25 12:07 2 MG Enoxaparin Sodium 40 mg DAILY SC 01/05/25 10:00 01/06/25 11:00 40 MG Ceftriaxone Sodium 50 ml @ 100 mls/hr DAILY@09 IV 01/07/25 09:00 Dextrose/Sodium Chloride 1,000 ml @ 100 mls/hr Q10H IV 01/06/25 17:45 UNV Laboratory Results Laboratory Tests 01/06/25 04:59 Chemistry Test 01/06/25 04:59 Albumin 3.5 g/dL (3.2-4.8) Calcium Level 9.8 mg/dL (8.7-10.4) Total Protein 5.5 g/dL (5.7-8.2) L LFT Test 01/06/25 04:59 Alanine Aminotransferase (ALT) < 9 U/L (7-40) Alkaline Phosphatase 55 U/L (46-116) Aspartate Amino Transferase (AST) 18 U/L (13-40) Total Bilirubin 2.6 mg/dL (0.2-1.0) H Urinalysis Test 01/05/25 01:57 Urine Color Yellow (Yellow) Urine Clarity Turbid (Clear) H Urine pH 5.5 (5.0-9.0) Urine Specific [place] 1.027 (1.001-1.035) Urine Protein Trace (Negative) H Urine Ketones 1+ (Negative) H Urine Blood Negative /uL (Negative) Urine Nitrite Negative (Negative) Urine Bilirubin Negative (Negative) Urine Urobilinogen 4 mg/dL (Negative) H Urine Leukocyte Esterase 3+ /uL (Negative) Urine RBC 19 /hpf (0 - 4) Urine Microscopic WBC 154 /HPF (0-5) H Urine Squamous Epithelial Cells Few /hpf (<5) Urine Calcium Oxalate Crystals Few (None Seen) Urine Bacteria None seen /hpf (None Seen) Urine Mucus Few (None Seen) Urine Glucose Trace mg/dL (Normal) Microbiology Microbiology Date/Time Source Procedure Growth Status 01/04/25 18:01 Blood Blood Culture - Preliminary NO GROWTH AFTER 24 HOURS OF INCUBATION. Resulted Labs and/or images reviewed: Labs reviewed by me, Image(s) reviewed by me Assessment/Plan Assessment/Plan Update 01/06 01/05-patient admitted for SBO, NG tube inserted on intermittent suction. Patient doing okay, still has some abdominal pain. IV fluids continuing. Pending surgical eval. 01/06- vital signs stable, NG output is decreasing, hypoactive bowel sounds,. Surgery following and wants HIDA scan tomorrow. Patient has remained NPO with NG tube on suction. No bowel movements or gas. Urine output is decreased. We will get ultrasound to evaluate for urinary obstruction/retention. Continue IV fluids for volume resuscitation with D5 half-normal saline 100 cc/hour. Continue IV Protonix daily. Lovenox for DVT prophylaxis. Keep close eye and accurate I&Os for urine output. Ceftriaxone for UTI acute complicated cystitis. Otherwise continue present treatment Problem list Acute abdominal pain with the vomiting ? Complete versus partial small-bowel obstruction ? Gastroenteritis likely viral Acute complicated cystitis H/o hypothyroidism Cholelithiasis Sigmoid diverticulosis S/p mechanical fall Plan - Gastrografin small bowel series -- delayed small bowel transit time, suspect partial small bowel obstruction or ileus - surgical consult - ceftriaxone IV antibiotic - patient was NPO with a NG tube to gravity - IV Protonix and ondansetron - D5 half NS maintenance fluid Goals of care discussed with the patient for over 31 minutes. Full code Plan discussed with: Patient My Orders Orders - MICHELLE CUELLO MD Procedure Category Date Status Time Ceftriaxone 1gm/50ml PHA 01/07/25 In Process D5w (Rocephin) 09:00 D5w/Sod Chl 0.45% PHA 01/06/25 Logged (D5w 1/2ns) 17:45 Date of Service: Jan 06, 2025 Billing Provider: MICHELLE CUELLO MD Common Visit Codes: [id number] INP/OBS CARE(HIGH) MICHELLE CUELLO MD Jan 06, 2025 18:04
[2025-01-06] MEDS: D5W/SOD CHL 0.45% 1,000 ML IV SCH (18:22)
[2025-01-07] VITALS (7 sets, daily range): BP systolic 120–131; BP diastolic 62–76; PULSE 81–88; RESP 16–18; TEMP 97.5–98.6; O2SAT 92–95
[2025-01-07 07:03] LABS: Basophils # (auto) 0.1 10 ^3/uL (0-0.2); Basophils % (auto) 0.8 % (0.0-2.0); Eosinophils # (auto) 0.3 10 ^3/uL (0-0.8); Hematocrit 36.8 % (36.0-46.0); Hemoglobin 13.3 g/dL (12.2-16.2); Lymphocytes # (auto) 1.4 10 ^3/uL (0.4-5.4); Lymphocytes % (auto) 13.3 % (10.0-50.0); Mean Corpuscular Hgb Conc. 36.1 g/dL (32.0-36.0); Mean Corpuscular Volume 88.4 fL (80.0-100.0); Monocytes # (auto) 1.2 10 ^3/uL (0-1.3); Monocytes % (auto) 11.4 % (0.0-12.0); Neutrophils # (auto) 7.6 10 ^3/uL (1.6-8.6); Neutrophils % (auto) 71.5 % (37.0-80.0); Platelet Count (auto) 207 10^3/uL (140-450); Red Blood Cells 4.16 10^6/uL (4.0-5.20); Red Cell Distribution Width 15.4 % (11.8-14.3); White Blood Cell 10.7 10^3/uL (4.4-10.8)
[2025-01-07 07:18] LABS: Alkaline Phosphatase 47 U/L (46-116); Anion Gap 7 (5-15); Aspartate Aminotransferase 14 U/L (13-40); BUN/Creatinine Ratio 25.5 (10.0-20.0); Blood Urea Nitrogen 12 mg/dL (9-23); Carbon Dioxide 29 mmol/L (20-31); Chloride 100 mmol/L (98-107); Sodium 136 mmol/L (136-145)
[2025-01-07 07:21] LABS: Alanine Aminotransferase < 9 U/L (7-40); Albumin 3.1 g/dL (3.2-4.8); Bilirubin, Total 1.6 mg/dL (0.2-1.0); Glucose 133 mg/dL (74-106); Potassium 3.1 mmol/L (3.5-5.1); Total Protein 4.9 g/dL (5.7-8.2)
[2025-01-07] MEDS: cefTRIAXone 1GM/50ML D5W 50 ML IV SCH (11:29)
--- NOTE | 2025-01-07 11:59 | DVH ---
Procedure: NM NM HIDA SCAN Exam Date: 01/07/2025 09:23 AM Clinical History: R/O CHOLECYSTITIS Comparison Study: CT dated 01/04/2025 Nuclear Medicine Hepatobiliary Scan. Technique: Following the intravenous administration of 5.2 mCi of technetium 99m labeled Choletec multiple plana r abdominal planar images were obtained in anterior projection in 5 minute intervals for 60 minutes . Right lateral images were obtained at 80 minutes after injection. Findings: The liver appears grossly normal in size. There is no abnormal persistence of the cardiac or blood po ol activity. There is prompt visualization of the gallbladder. There is nonvisualization of activity in the small bowel. Impression: There is nonvisualization of activity in the small bowel. This may represent common bile duct obstruc tion. This can be further evaluated with ERCP or MRCP if clinically indicated.
[2025-01-07] MEDS: POTASSIUM CHLORIDE 60 MEQ, LIDOCAINE 1% (LOCAL ANESTH.) 6 ML in SODIUM CHL 0.9% 500 ML IV ONE (12:30)
[2025-01-07] MEDS ORDERED: PPN PER PHARMACY 0 ML IV SCH (12:45)
[2025-01-07] MEDS ORDERED: DEXTROSE (50%) 50ML SYRG IV SCH (13:00)
[2025-01-07 13:41] LABS: Magnesium 1.7 mg/dL (1.6-2.6)
[2025-01-07 13:43] LABS: Phosphorus 2.6 mg/dL (2.4-5.1)
--- NOTE | 2025-01-07 15:55 | DVHPN2 ---
Subjective painet npo, some abd pain still present Reviewed: H&P Changes from previous H/P or p: No Changes General: Per HPI Objective Vitals Vital Signs Date Time Temp Pulse Resp B/P (MAP) Pulse Ox O2 Delivery O2 Flow Rate FiO2 01/07/25 13:00 98.0 83 16 131/76 (94) 95 98.0 01/07/25 08:00 Room Air* 0 21 Intake/Output Intake and Output 01/07/25 07:00 Intake Total 450 ml Output Total 1640 ml Balance -1190 ml Intake Oral 400 ml IV Total 50 ml Output Urine Total 90 ml Gastric Drainage Total 1550 ml # Voids 2 Exam Constitutional: Patient was alert and oriented to time, place and person and does not appear to be in acute distress Gen - no pallor, no icterus, no cyanosis, no clubbing, no LAD, no edema . Skin - Patients skin is warm and dry. HEENT - normocephalic, atraumatic, moist mucous membranes. Neck - full ROM, no LAD, no JVD Pulmonary - B/L equal air entry, right lower lung inspiratory crackles , no wheezing, no stridor. cardiovascular - regular S1,S2 heard, no added sounds, no murmurs heard. GI - soft abdomen with mild diffuse tenderness to palpation. no hepatospleenomegaly. Bowel sounds normoactive Neurological - Bilateral upper extremity strength 5/5, bilateral lower extremity strength 5/5, no facial droop, normal speech, no tremor, no sensory deficiets. Medications Current Medications Medications Dose Ordered Sig/Elizabet Route Start Time Stop Time Status Last Admin Dose Admin Pantoprazole Sodium 40 mg DAILY IV 01/05/25 10:00 01/05/25 09:06 40 MG Ondansetron HCl 4 mg Q6HPRN PRN IV 01/04/25 22:00 Morphine Sulfate 2 mg Q6HPRN PRN IV 01/04/25 22:00 01/05/25 12:07 2 MG Enoxaparin Sodium 40 mg DAILY SC 01/05/25 10:00 01/07/25 11:29 40 MG Ceftriaxone Sodium 50 ml @ 100 mls/hr DAILY@09 IV 01/07/25 09:00 01/07/25 11:29 100 MLS/HR Amino Acids 0 ml @ 0 mls/hr PER PHARMACY IV 01/07/25 12:45 Diagnostic Test (Pha) 1 strip Q6HR 01/07/25 18:00 Insulin Human Regular FOLLOW SLIDING SCALE Q6HR SC 01/07/25 18:00 Dextrose 50 ml UD IV 01/07/25 13:00 Fat Emulsion Intravenous 50 ml/ Sodium Chloride 40 meq/Potassium Chloride 60 meq/ Magnesium Sulfate 8 meq/ Multivitamins 10 ml/Chromium/ Copper/Manganese/ Zinc 1 ml/Amino Acids/Dextrose/ Purified Water 1,803 ml @ 75 mls/hr Q24H3M IV 01/07/25 22:00 01/08/25 21:59 Laboratory Results Laboratory Tests 01/07/25 06:05 Chemistry Test 01/07/25 06:05 Albumin 3.1 g/dL (3.2-4.8) L Calcium Level 9.0 mg/dL (8.7-10.4) Magnesium Level 1.7 mg/dL (1.6-2.6) Phosphorus Level 2.6 mg/dL (2.4-5.1) Total Protein 4.9 g/dL (5.7-8.2) L Lipid panel Test 01/07/25 06:05 Triglycerides Level 100 mg/dL (< 150) LFT Test 01/07/25 06:05 Alanine Aminotransferase (ALT) < 9 U/L (7-40) Alkaline Phosphatase 47 U/L (46-116) Aspartate Amino Transferase (AST) 14 U/L (13-40) Total Bilirubin 1.6 mg/dL (0.2-1.0) H Urinalysis Test 01/05/25 01:57 Urine Color Yellow (Yellow) Urine Clarity Turbid (Clear) H Urine pH 5.5 (5.0-9.0) Urine Specific [place] 1.027 (1.001-1.035) Urine Protein Trace (Negative) H Urine Ketones 1+ (Negative) H Urine Blood Negative /uL (Negative) Urine Nitrite Negative (Negative) Urine Bilirubin Negative (Negative) Urine Urobilinogen 4 mg/dL (Negative) H Urine Leukocyte Esterase 3+ /uL (Negative) Urine RBC 19 /hpf (0 - 4) Urine Microscopic WBC 154 /HPF (0-5) H Urine Squamous Epithelial Cells Few /hpf (<5) Urine Calcium Oxalate Crystals Few (None Seen) Urine Bacteria None seen /hpf (None Seen) Urine Mucus Few (None Seen) Urine Glucose Trace mg/dL (Normal) Microbiology Microbiology Date/Time Source Procedure Growth Status 01/04/25 18:01 Blood Blood Culture - Preliminary NO GROWTH AFTER 48 HOURS OF INCUBATION. Resulted Labs and/or images reviewed: Labs reviewed by me, Image(s) reviewed by me Assessment/Plan Assessment/Plan Update 01/07 01/05-patient admitted for SBO, NG tube inserted on intermittent suction. Patient doing okay, still has some abdominal pain. IV fluids continuing. Pending surgical eval. 01/06- vital signs stable, NG output is decreasing, hypoactive bowel sounds,. Surgery following and wants HIDA scan tomorrow. Patient has remained NPO with NG tube on suction. No bowel movements or gas. Urine output is decreased. We will get ultrasound to evaluate for urinary obstruction/retention. Continue IV fluids for volume resuscitation with D5 half-normal saline 100 cc/hour. Continue IV Protonix daily. Lovenox for DVT prophylaxis. Keep close eye and accurate I&Os for urine output. Ceftriaxone for UTI acute complicated cystitis. Otherwise continue present treatment 01/07- patient today has absent bowel sounds. No gas or bowel movement passing. Surgery following. HIDA scan today showing failure of contrast passing from bile duct 2 small intestine, suggesting possible biliary obstruction. MRCP ordered. keep npo w NGT on Intermittent suction. PPN to start with midline today. Problem list Acute abdominal pain with the vomiting CBD duct obstruction possible ? Complete versus partial small-bowel obstruction ? Gastroenteritis likely viral Acute complicated cystitis H/o hypothyroidism Cholelithiasis Sigmoid diverticulosis S/p mechanical fall Plan - Gastrografin small bowel series -- delayed small bowel transit time, suspect partial small bowel obstruction or ileus - HIDA with possible CBD obstruction - surgical consult - ceftriaxone IV antibiotic - patient was NPO with a NG tube to gravity - IV Protonix and ondansetron - D5 half NS maintenance fluid Goals of care discussed with the patient for over 31 minutes. Full code Plan discussed with: Patient My Orders Orders - MICHELLE CUELLO MD Procedure Category Date Status Time Ceftriaxone 1gm/50ml PHA 01/07/25 In Process D5w (Rocephin) 09:00 Potassium Chloride PHA 01/07/25 In Process (Potassium Chloride). 10:00 Insert Midline ORDERS 01/07/25 Transmitted 12:35 Ppn Per Pharmacy PHA 01/07/25 In Process 12:45 Glucose Blood PHA 01/07/25 In Process (Accu-Chek Comfort 18:00 Insulin R (Human) PHA 01/07/25 In Process (Insulin R) 18:00 Dextrose 50% Syringe PHA 01/07/25 In Process 13:00 Amino Acid PHA 01/07/25 In Process Infusion... W/Fat 22:00 Comprehensive LAB 01/08/25 Verified Metabolic Panel 04:00 Magnesium LAB 01/08/25 Verified 04:00 Phosphorus LAB 01/08/25 Verified 04:00 Ppn Per Pharmacy ELIAZAR 01/07/25 In Process 22:00 Date of Service: Jan 07, 2025 Billing Provider: MICHELLE CUELLO MD Common Visit Codes: [id number] INP/OBS CARE(HIGH) MICHELLE CUELLO MD Jan 07, 2025 15:55
[2025-01-07] MEDS: InsuLIN REG 1unit/0.01ml Soln (100units/ml) SC SCH (18:00)
[2025-01-07] MEDS: ACCU-CHEK COMFORT CURVE STRIP VI SCH (18:00)
--- NOTE | 2025-01-07 18:57 | DVH ---
[id number] MRI MRCP MRI Attending Name: JANICE MICHELLE GUAMAN COMPARISON: CT scan dated 01/04/2025 INDICATION: R/O CHOLEDOCHOLITITHIASIS TECHNIQUE: Multi planar multi sequence abdominal MRI was performed without IV contrast. MRCP was perf ormed without the use of intravenous contrast using a MRI imaging system. Three-dimensional MRCP was performed using maximum intensity projection reconstruction on an independent workstation under concu rrent supervision. FINDINGS: Visualized lower thorax: Trace bilateral pleural effusions and mild adjacent pulmonary opacities like ly atelectasis. There is cardiomegaly. Visualized ascending aorta is prominent measuring 4.3 cm in c aliber. Liver: Normal in morphology and signal intensity. Gallbladder: Several subcentimeter gallstones are noted in gallbladder lumen. No gallbladder wall th ickening. No pericholecystic edema. Biliary system: There is no intrahepatic or extrahepatic bile duct dilatation. The common bile duct m easures 6 mm in caliber, which is normal for patient's age. No filling defect to suggest choledocholi thiasis. Spleen: Normal in morphology and signal intensity. Pancreas: Normal in morphology and signal intensity. Adrenal glands: Normal in morphology and signal intensity. Kidneys: The kidneys are symmetric in size and appearance. No hydronephrosis. Urinary tract: The included ureters, as visualized, are normal in course and caliber. GI tract: Distended small bowel loops are seen throughout the abdomen measuring up to 3.8 cm in calib er without significant Mural thickening. Colonic diverticula are seen without evidence of diverticuli tis. Lymph nodes: No enlarged lymph nodes. Peritoneum: Small ascites in the upper abdomen and paracolic gutters. Musculoskeletal: The bone marrow signal intensity is within normal limits. IMPRESSION: 1. Cholelithiasis with no evidence of cholecystitis or choledocholithiasis. The common bile duct is normal in caliber for patient's age. 2. Small ascites in the upper abdomen which was not present in the previous CT scan of 01/04/2025. 3. Persistent distended small bowel loops throughout the abdomen concerning for ileus or bowel obstru ction. The small-bowel series dated 01/05/2025 showed no evidence of complete obstruction. 4. Ascending aorta aneurysm.
[2025-01-07] MEDS: PPN PER PHARMACY IV NR (22:22)
[2025-01-08] VITALS (7 sets, daily range): BP systolic 106–125; BP diastolic 59–74; PULSE 79–102; RESP 16–20; TEMP 97.9–98.7; O2SAT 92–95
[2025-01-08 07:15] LABS: Anion Gap 7 (5-15); Aspartate Aminotransferase 14 U/L (13-40); BUN/Creatinine Ratio 33.3 (10.0-20.0); Blood Urea Nitrogen 14 mg/dL (9-23); Calcium 8.9 mg/dL (8.7-10.4); Carbon Dioxide 29 mmol/L (20-31); Chloride 101 mmol/L (98-107); Magnesium 1.7 mg/dL (1.6-2.6); Potassium 3.7 mmol/L (3.5-5.1); Sodium 137 mmol/L (136-145)
[2025-01-08 07:17] LABS: Alanine Aminotransferase < 9 U/L (7-40); Alkaline Phosphatase 45 U/L (46-116); Bilirubin, Total 1.4 mg/dL (0.2-1.0); Glucose 129 mg/dL (74-106); Phosphorus 1.6 mg/dL (2.4-5.1); Total Protein 4.9 g/dL (5.7-8.2)
--- NOTE | 2025-01-08 08:29 | DVHINCON2 ---
Date of service: Jan 08, 2025 Allergies: Coded Allergies: NO KNOWN ALLERGIES (Unverified , 12/03/16) Home Meds Reported Medications Levothyroxine Sodium (Levothyroxine Sodium) 75 Mcg Tab, 1 TAB PO DAILY 09/10/22 Discontinued Reported Medications Cholecalciferol (Gnp Vitamin D) 1,000 Unit Tab, 5000 UNIT PO DAILY, TAB 09/10/22 Current Medications Current Medications Medications (Trade) Dose Ordered Sig/Elizabet Route PRN Reason Start Time Stop Time Status Last Admin Ceftriaxone Sodium 50 ml @ 100 mls/hr DAILY@09 IV 01/07/25 09:00 01/07/25 11:29 Amino Acids 0 ml @ 0 mls/hr PER PHARMACY IV 01/07/25 12:45 Diagnostic Test (Pha) (Accu-Chek Comfort Curve T) 1 strip Q6HR 01/07/25 18:00 01/08/25 05:20 Insulin Human Regular (InsuLIN R) FOLLOW SLIDING SCALE Q6HR SC 01/07/25 18:00 01/08/25 05:26 Dextrose 50 ml UD IV 01/07/25 13:00 Fat Emulsion Intravenous 50 ml/ Sodium Chloride 40 meq/Potassium Chloride 60 meq/ Magnesium Sulfate 8 meq/ Multivitamins 10 ml/Chromium/ Copper/Manganese/ Zinc 1 ml/Amino Acids/Dextrose/ Purified Water 1,803 ml @ 75 mls/hr Q24H3M IV 01/07/25 22:00 01/08/25 21:59 01/07/25 22:22 Vital Signs Vital Signs Date Time Temp Pulse Resp B/P (MAP) Pulse Ox O2 Delivery O2 Flow Rate FiO2 01/08/25 04:44 97.9 81 17 118/65 (82) 93 97.9 01/07/25 20:00 Room Air* 0 21 Labs/Diagnostic Data Labs Test 01/08/25 05:41 01/08/25 05:22 01/07/25 06:05 01/05/25 01:57 Range/Units Sodium Level 137 136-145 mmol/L Potassium Level 3.7 3.5-5.1 mmol/L Chloride Level 101 98-107 mmol/L Carbon Dioxide Level 29 20-31 mmol/L Anion Gap 7 5-15 Blood Urea Nitrogen 14 9-23 mg/dL Creatinine 0.42 L 0.550-1.02 mg/dL Glomerular Filtration Rate Calc 94 >90 mL/min BUN/Creatinine Ratio 33.3 H 10.0-20.0 Serum Glucose 129 H 74-106 mg/dL Calcium Level 8.9 8.7-10.4 mg/dL Phosphorus Level 1.6 L 2.4-5.1 mg/dL Magnesium Level 1.7 1.6-2.6 mg/dL Total Bilirubin 1.4 H 0.2-1.0 mg/dL Aspartate Amino Transferase (AST) 14 13-40 U/L Alanine Aminotransferase (ALT) < 9 7-40 U/L Alkaline Phosphatase 45 L 46-116 U/L Total Protein 4.9 L 5.7-8.2 g/dL Albumin 3.0 L 3.2-4.8 g/dL POC Glucose 145 H 70-106 mg/dl White Blood Count 10.7 4.4-10.8 10^3/uL Red Blood Count 4.16 4.0-5.20 10^6/uL Hemoglobin 13.3 12.2-16.2 g/dL Hematocrit 36.8 36.0-46.0 % Mean Corpuscular Volume 88.4 80.0-100.0 fL Mean Corpuscular Hemoglobin 32.0 28.0-32.0 pg Mean Corpuscular Hemoglobin Concent 36.1 H 32.0-36.0 g/dL Red Cell Distribution Width 15.4 H 11.8-14.3 % Platelet Count 207 140-450 10^3/uL Mean Platelet Volume 8.5 6.9-10.8 fL Neutrophils (%) (Auto) 71.5 37.0-80.0 % Lymphocytes (%) (Auto) 13.3 10.0-50.0 % Monocytes (%) (Auto) 11.4 0.0-12.0 % Eosinophils (%) (Auto) 3.0 0.0-7.0 % Basophils (%) (Auto) 0.8 0.0-2.0 % Neutrophils # (Auto) 7.6 1.6-8.6 10 ^3/uL Lymphocytes # (Auto) 1.4 0.4-5.4 10 ^3/uL Monocytes # (Auto) 1.2 0-1.3 10 ^3/uL Eosinophils # (Auto) 0.3 0-0.8 10 ^3/uL Basophils # (Auto) 0.1 0-0.2 10 ^3/uL Nucleated Red Blood Cells 0.0 % Triglycerides Level 100 < 150 mg/dL Urine Color Yellow Yellow Urine Clarity Turbid H Clear Urine pH 5.5 5.0-9.0 Urine Specific [place] 1.027 1.001-1.035 Urine Protein Trace H Negative Urine Ketones 1+ H Negative Urine Blood Negative Negative /uL Urine Nitrite Negative Negative Urine Bilirubin Negative Negative Urine Urobilinogen 4 H Negative mg/dL Urine Leukocyte Esterase 3+ Negative /uL Urine RBC 19 0 - 4 /hpf Urine Microscopic WBC 154 H 0-5 /HPF Urine Squamous Epithelial Cells Few <5 /hpf Urine Calcium Oxalate Crystals Few None Seen Urine Bacteria None seen None Seen /hpf Urine Mucus Few None Seen Urine Glucose Trace Normal mg/dL Test 01/04/25 19:40 01/04/25 18:01 Range/Units Troponin I High Sensitivity 7 </=34 ng/L Lactic Acid Level 1.9 0.4-2.0 mmol/L Lipase 17 12-53 U/L Thyroid Stimulating Hormone (TSH) 1.27 0.55-4.78 uIU/mL Microbiology Date/Time Source Procedure Growth Status 01/04/25 18:01 Blood Blood Culture - Preliminary NO GROWTH AFTER 72 HOURS OF INCUBATION. Resulted Assessment 01/08/25 TENDER RUQ, TRANSIENT HYPERBILIRUBINEMIA, GALLSTONES. LAPAROSOCPIC POSSIBLY OPEN CHOLECYSTECTOMY,( IF CLEARED BY CARDIOLOGY), RISKS AND COMPLICAT IONS EXPLAINED IN DETAIL. Plan discussed with: Patient PAMELA CASAS MD Jan 08, 2025 08:29
[2025-01-08] MEDS: LACTATED RINGER'S 500 ML IV SCH (09:30)
[2025-01-08 10:45] LABS: INR 1.04 (0.9-1.15); Partial Thromboplastin Time 27.4 SEC (24.5-34.5)
--- NOTE | 2025-01-08 11:18 | DVHINCON2 ---
Date Seen: Jan 08, 2025 Referring Physician MD Brandi Reason for Consultation Cardiac risk stratification History of Present Illness This is an 89-year-old female who presented to the emergency room via EMS with a chief complaint of abdominal pain. The patient presented with abdominal pain associated with nausea, vomiting, some constipation, and generalized weakness. She has been evaluated by the surgical team with recommendations for a cholecystectomy pending cardiac risk stratification. Denies chest pain, palpitations, diaphoresis, SOB, dizziness, or syncopal events. Denies exertional angina or dyspnea on exertion. States she is able to ambulate with the aid of a walker without any fatigue. A 12 lead electrocardiogram revealed sinus rhythm. Significant medical history includes hypothyroidism and dyslipidemia. Past Medical History Past medical history reviewed. No other significant than mentioned above. Past Surgical History Right arm surgery with right shoulder prosthesis Family History Family history reviewed. Not significant for cardiovascular disease. Social History Denies the use of illicit drugs, alcohol, or tobacco use. Allergies: Coded Allergies: NO KNOWN ALLERGIES (Unverified , 12/03/16) Home Meds Reported Medications Levothyroxine Sodium (Levothyroxine Sodium) 75 Mcg Tab, 1 TAB PO DAILY 09/10/22 Discontinued Reported Medications Cholecalciferol (Gnp Vitamin D) 1,000 Unit Tab, 5000 UNIT PO DAILY, TAB 09/10/22 Home Meds Home medications reviewed. Current Medications Current Medications Medications (Trade) Dose Ordered Sig/Elizabet Route PRN Reason Start Time Stop Time Status Last Admin Amino Acids 0 ml @ 0 mls/hr PER PHARMACY IV 01/07/25 12:45 Diagnostic Test (Pha) (Accu-Chek Comfort Curve T) 1 strip Q6HR 01/07/25 18:00 01/08/25 05:20 Insulin Human Regular (InsuLIN R) FOLLOW SLIDING SCALE Q6HR SC 01/07/25 18:00 01/08/25 05:26 Dextrose 50 ml UD IV 01/07/25 13:00 Fat Emulsion Intravenous 50 ml/ Sodium Chloride 40 meq/Potassium Chloride 60 meq/ Magnesium Sulfate 8 meq/ Multivitamins 10 ml/Chromium/ Copper/Manganese/ Zinc 1 ml/Amino Acids/Dextrose/ Purified Water 1,803 ml @ 75 mls/hr Q24H3M IV 01/07/25 22:00 01/08/25 21:59 01/07/25 22:22 Lactated Ringer's 500 ml @ 250 mls/hr Q2H IV 01/08/25 09:30 UNV Fat Emulsion Intravenous 100 ml/Sodium Chloride 20 meq/ Sodium Phosphate 40 meq/Potassium Chloride 40 meq/ Potassium Phosphate 22 meq/ Magnesium Sulfate 12 meq/ Multivitamins 10 ml/Amino Acids/ Dextrose/Purified Water 2,053 ml @ 85 mls/hr [id number] IV 01/08/25 22:00 01/09/25 21:59 Review of Systems Constitutional: Generalized weakness Ears, Nose, & Throat: No symptom reported Eyes: No symptom reported Neurological: No symptoms reported Pulmonary/Respiratory: No symptom reported Cardiovascular: No symptom reported Gastrointestinal: Abdominal pain, nausea, vomiting, constipation Genitourinary: No symptom reported Musculoskeletal: No symptom reported Skin: No symptom reported Psychiatric: No symptom reported Endocrine: No symptom reported Hemotologic/Lymphatic: No symptom reported Vital Signs Vital Signs Date Time Temp Pulse Resp B/P (MAP) Pulse Ox O2 Delivery O2 Flow Rate FiO2 01/08/25 09:00 98.0 80 18 125/72 (89) 92 98.0 01/07/25 20:00 Room Air* 0 21 Physical Exam General Appearance: Cooperative. Well developed. Well nourished. In no acute distress Head Exam: Normal inspection Neck Exam: Normal inspection. Non-tender. Normal alignment Pulmonary/Respiratory: Chest non-tender. Clear bilateral breath sounds Cardiovascular/Chest: Regular rate and rhythm. S1, S2. NSR. No murmurs. No JVD. Peripheral Pulses: 2+ Radial (R). 2+ Radial (L). 2+ Pedal (R). 2+ Pedal (L) Abdominal Exam: Normal bowel sounds. Soft. Tender Ankle Exam: Negative ankle edema Lower extremities: Negative lower extremity edema Neuro/Mental Status: A&O x3. Coherent Thoughts/Psych: Normal thought pattern. Appropriate mood and affect. Good judgement and insight Appearance: In no acute distress Skin Exam: Normal inspection. Normal color. Warm. Dry Labs/Diagnostic Data Labs Test 01/08/25 09:54 01/08/25 05:41 01/08/25 05:22 01/07/25 06:05 Range/Units Prothrombin Time 11.0 9.3-11.8 sec Prothrombin Time INR 1.04 0.9-1.15 Activated Partial Thromboplast Time 27.4 24.5-34.5 SEC Sodium Level 137 136-145 mmol/L Potassium Level 3.7 3.5-5.1 mmol/L Chloride Level 101 98-107 mmol/L Carbon Dioxide Level 29 20-31 mmol/L Anion Gap 7 5-15 Blood Urea Nitrogen 14 9-23 mg/dL Creatinine 0.42 L 0.550-1.02 mg/dL Glomerular Filtration Rate Calc 94 >90 mL/min BUN/Creatinine Ratio 33.3 H 10.0-20.0 Serum Glucose 129 H 74-106 mg/dL Calcium Level 8.9 8.7-10.4 mg/dL Phosphorus Level 1.6 L 2.4-5.1 mg/dL Magnesium Level 1.7 1.6-2.6 mg/dL Total Bilirubin 1.4 H 0.2-1.0 mg/dL Aspartate Amino Transferase (AST) 14 13-40 U/L Alanine Aminotransferase (ALT) < 9 7-40 U/L Alkaline Phosphatase 45 L 46-116 U/L Total Protein 4.9 L 5.7-8.2 g/dL Albumin 3.0 L 3.2-4.8 g/dL POC Glucose 145 H 70-106 mg/dl White Blood Count 10.7 4.4-10.8 10^3/uL Red Blood Count 4.16 4.0-5.20 10^6/uL Hemoglobin 13.3 12.2-16.2 g/dL Hematocrit 36.8 36.0-46.0 % Mean Corpuscular Volume 88.4 80.0-100.0 fL Mean Corpuscular Hemoglobin 32.0 28.0-32.0 pg Mean Corpuscular Hemoglobin Concent 36.1 H 32.0-36.0 g/dL Red Cell Distribution Width 15.4 H 11.8-14.3 % Platelet Count 207 140-450 10^3/uL Mean Platelet Volume 8.5 6.9-10.8 fL Neutrophils (%) (Auto) 71.5 37.0-80.0 % Lymphocytes (%) (Auto) 13.3 10.0-50.0 % Monocytes (%) (Auto) 11.4 0.0-12.0 % Eosinophils (%) (Auto) 3.0 0.0-7.0 % Basophils (%) (Auto) 0.8 0.0-2.0 % Neutrophils # (Auto) 7.6 1.6-8.6 10 ^3/uL Lymphocytes # (Auto) 1.4 0.4-5.4 10 ^3/uL Monocytes # (Auto) 1.2 0-1.3 10 ^3/uL Eosinophils # (Auto) 0.3 0-0.8 10 ^3/uL Basophils # (Auto) 0.1 0-0.2 10 ^3/uL Nucleated Red Blood Cells 0.0 % Triglycerides Level 100 < 150 mg/dL Test 01/05/25 01:57 01/04/25 19:40 01/04/25 18:01 Range/Units Urine Color Yellow Yellow Urine Clarity Turbid H Clear Urine pH 5.5 5.0-9.0 Urine Specific [place] 1.027 1.001-1.035 Urine Protein Trace H Negative Urine Ketones 1+ H Negative Urine Blood Negative Negative /uL Urine Nitrite Negative Negative Urine Bilirubin Negative Negative Urine Urobilinogen 4 H Negative mg/dL Urine Leukocyte Esterase 3+ Negative /uL Urine RBC 19 0 - 4 /hpf Urine Microscopic WBC 154 H 0-5 /HPF Urine Squamous Epithelial Cells Few <5 /hpf Urine Calcium Oxalate Crystals Few None Seen Urine Bacteria None seen None Seen /hpf Urine Mucus Few None Seen Urine Glucose Trace Normal mg/dL Troponin I High Sensitivity 7 </=34 ng/L Lactic Acid Level 1.9 0.4-2.0 mmol/L Lipase 17 12-53 U/L Thyroid Stimulating Hormone (TSH) 1.27 0.55-4.78 uIU/mL Microbiology Date/Time Source Procedure Growth Status 01/04/25 18:01 Blood Blood Culture - Preliminary NO GROWTH AFTER 72 HOURS OF INCUBATION. Resulted Assessment Preprocedural cardiovascular examination Cholelithiasis possible biliary obstruction Thyroid disease Dyslipidemia Plan/Recommendation (Dr. Mckeon) Case discussed with Dr. Mckeon. Revised cardiac risk index (Donato criteria): 3.9% risk of major cardiac events. Predicted METS >4 based on reported exercise capacity. Patient has no underlying history of congestive heart failure, coronary artery disease, and has a fair functional capacity. Per Cardiology standpoint, the patient is at an acceptable-risk for moderate-risk surgery. There is no additional cardiac workup indicated prior to surgery. Thank you for allowing us to care for this patient. Please call with any questions or concerns. This medical document was created using an electronic medical record system with voice recognition software and computerized dictation system. Although this document has been carefully reviewed, there might still be some phonetic and typographical errors. Occasional wrong-word or ``sound-alike substitutions may have occurred due to the inherent limitations of voice recognition software. These areas are purely typographical due to imperfections of the software pro grams and do not reflect any compromise in the patient's medical care. Please read the chart carefully and recognize, using context, where these substitutions have occurred. Plan discussed with: Patient, Other NYHA Physical activity limitations: NA Date of Service: Jan 08, 2025 Billing Provider: BECKY LU Cardiology Common Codes: [id number] INP/OBS CARE (High) BECKY LU Jan 08, 2025 11:18
--- NOTE | 2025-01-08 12:49 | DVHPN2 ---
Subjective painet npo, some abd pain still present Reviewed: H&P Changes from previous H/P or p: No Changes General: Per HPI Objective Vitals Vital Signs Date Time Temp Pulse Resp B/P (MAP) Pulse Ox O2 Delivery O2 Flow Rate FiO2 01/08/25 09:00 98.0 80 18 125/72 (89) 92 98.0 01/08/25 08:00 Room Air* 0 21 Intake/Output Intake and Output 01/08/25 07:00 Intake Total 1036 ml Output Total 2275 ml Balance -1239 ml Intake Oral 500 ml IV Total 536 ml Output Urine Total 125 ml Gastric Drainage Total 800 ml Drainage Total 1350 ml # Voids 3 Exam Constitutional: Patient was alert and oriented to time, place and person and does not appear to be in acute distress Gen - no pallor, no icterus, no cyanosis, no clubbing, no LAD, no edema . Skin - Patients skin is warm and dry. HEENT - normocephalic, atraumatic, moist mucous membranes. Neck - full ROM, no LAD, no JVD Pulmonary - B/L equal air entry, right lower lung inspiratory crackles , no wheezing, no stridor. cardiovascular - regular S1,S2 heard, no added sounds, no murmurs heard. GI - soft abdomen with mild diffuse tenderness to palpation. no hepatospleenomegaly. Bowel sounds normoactive Neurological - Bilateral upper extremity strength 5/5, bilateral lower extremity strength 5/5, no facial droop, normal speech, no tremor, no sensory deficiets. Medications Current Medications Medications Dose Ordered Sig/Elizabet Route Start Time Stop Time Status Last Admin Dose Admin Pantoprazole Sodium 40 mg DAILY IV 01/05/25 10:00 01/08/25 09:43 40 MG Ondansetron HCl 4 mg Q6HPRN PRN IV 01/04/25 22:00 Morphine Sulfate 2 mg Q6HPRN PRN IV 01/04/25 22:00 01/05/25 12:07 2 MG Enoxaparin Sodium 40 mg DAILY SC 01/05/25 10:00 01/08/25 09:43 40 MG Ceftriaxone Sodium 50 ml @ 100 mls/hr DAILY@09 IV 01/07/25 09:00 01/08/25 09:43 100 MLS/HR Amino Acids 0 ml @ 0 mls/hr PER PHARMACY IV 01/07/25 12:45 Diagnostic Test (Pha) 1 strip Q6HR 01/07/25 18:00 01/08/25 05:20 1 STRIP Insulin Human Regular FOLLOW SLIDING SCALE Q6HR SC 01/07/25 18:00 01/08/25 05:26 2 UNITS Dextrose 50 ml UD IV 01/07/25 13:00 Fat Emulsion Intravenous 50 ml/ Sodium Chloride 40 meq/Potassium Chloride 60 meq/ Magnesium Sulfate 8 meq/ Multivitamins 10 ml/Chromium/ Copper/Manganese/ Zinc 1 ml/Amino Acids/Dextrose/ Purified Water 1,803 ml @ 75 mls/hr Q24H3M IV 01/07/25 22:00 01/08/25 21:59 01/07/25 22:22 75 MLS/HR Lactated Ringer's 500 ml @ 250 mls/hr Q2H IV 01/08/25 09:30 UNV Fat Emulsion Intravenous 100 ml/Sodium Chloride 20 meq/ Sodium Phosphate 40 meq/Potassium Chloride 40 meq/ Potassium Phosphate 22 meq/ Magnesium Sulfate 12 meq/ Multivitamins 10 ml/Amino Acids/ Dextrose/Purified Water 2,053 ml @ 85 mls/hr [id number] IV 01/08/25 22:00 01/09/25 21:59 Laboratory Results Laboratory Tests 01/07/25 06:05 01/08/25 05:41 Chemistry Test 01/08/25 05:41 Albumin 3.0 g/dL (3.2-4.8) L Calcium Level 8.9 mg/dL (8.7-10.4) Magnesium Level 1.7 mg/dL (1.6-2.6) Phosphorus Level 1.6 mg/dL (2.4-5.1) L Total Protein 4.9 g/dL (5.7-8.2) L Coagulation Test 01/08/25 09:54 Prothrombin Time 11.0 sec (9.3-11.8) Prothrombin Time INR 1.04 (0.9-1.15) Activated Partial Thromboplast Time 27.4 SEC (24.5-34.5) LFT Test 01/08/25 05:41 Alanine Aminotransferase (ALT) < 9 U/L (7-40) Alkaline Phosphatase 45 U/L (46-116) L Aspartate Amino Transferase (AST) 14 U/L (13-40) Total Bilirubin 1.4 mg/dL (0.2-1.0) H Urinalysis Test 01/05/25 01:57 Urine Color Yellow (Yellow) Urine Clarity Turbid (Clear) H Urine pH 5.5 (5.0-9.0) Urine Specific [place] 1.027 (1.001-1.035) Urine Protein Trace (Negative) H Urine Ketones 1+ (Negative) H Urine Blood Negative /uL (Negative) Urine Nitrite Negative (Negative) Urine Bilirubin Negative (Negative) Urine Urobilinogen 4 mg/dL (Negative) H Urine Leukocyte Esterase 3+ /uL (Negative) Urine RBC 19 /hpf (0 - 4) Urine Microscopic WBC 154 /HPF (0-5) H Urine Squamous Epithelial Cells Few /hpf (<5) Urine Calcium Oxalate Crystals Few (None Seen) Urine Bacteria None seen /hpf (None Seen) Urine Mucus Few (None Seen) Urine Glucose Trace mg/dL (Normal) Microbiology Microbiology Date/Time Source Procedure Growth Status 01/04/25 18:01 Blood Blood Culture - Preliminary NO GROWTH AFTER 72 HOURS OF INCUBATION. Resulted Labs and/or images reviewed: Labs reviewed by me, Image(s) reviewed by me Assessment/Plan Assessment/Plan Update 01/07 01/05-patient admitted for SBO, NG tube inserted on intermittent suction. Patient doing okay, still has some abdominal pain. IV fluids continuing. Pending surgical eval. 01/06- vital signs stable, NG output is decreasing, hypoactive bowel sounds,. Surgery following and wants HIDA scan tomorrow. Patient has remained NPO with NG tube on suction. No bowel movements or gas. Urine output is decreased. We will get ultrasound to evaluate for urinary obstruction/retention. Continue IV fluids for volume resuscitation with D5 half-normal saline 100 cc/hour. Continue IV Protonix daily. Lovenox for DVT prophylaxis. Keep close eye and accurate I&Os for urine output. Ceftriaxone for UTI acute complicated cystitis. Otherwise continue present treatment 01/07- patient today has absent bowel sounds. No gas or bowel movement passing. Surgery following. HIDA scan today showing failure of contrast passing from bile duct 2 small intestine, suggesting possible biliary obstruction. MRCP ordered. keep npo w NGT on Intermittent suction. PPN to start with midline today. 01/08 - remains NPO, passing gas some hypoactive bowel sounds today possibly improving. MRCP without CBD obstruction , and continuing SBO. Surgical plan for OR possible cholecystectomy, refer to surgical notes. Cardiology consulted for cardiac clearance. Pending echo. Problem list Acute abdominal pain with the vomiting, due to SBO and/or CBD obstruction CBD duct obstruction possible Surgical clearance ? Complete versus partial small-bowel obstruction ? Gastroenteritis , infectious etiology, possible Acute complicated cystitis H/o hypothyroidism Cholelithiasis Sigmoid diverticulosis S/p mechanical fall Plan - Gastrografin small bowel series -- delayed small bowel transit time, suspect partial small bowel obstruction or ileus - HIDA with possible CBD obstruction -MRCP with no biliary duct abnormalities or obstruction, noting continuing/ongoing SBO - surgical consult - ceftriaxone IV antibiotic - pending urine culture sensitivity speciation - patient was NPO with a NG tube low intermittent suction - IV Protonix and ondansetron - D5 half NS maintenance fluid -PPN started Goals of care discussed with the patient for over 31 minutes. Full code Plan discussed with: Patient My Orders Orders - MICHELLE CUELLO MD Procedure Category Date Status Time Glucose Blood PHA 01/07/25 In Process (Accu-Chek Comfort 18:00 Insulin R (Human) PHA 01/07/25 In Process (Insulin R) 18:00 Dextrose 50% Syringe PHA 01/07/25 In Process 13:00 Amino Acid PHA 01/07/25 In Process Infusion... W/Fat 22:00 Ppn Per Pharmacy [facility] 01/07/25 In Process 22:00 Lactated Ringer's PHA 01/08/25 Pending 09:30 Amino Acid PHA 01/08/25 In Process Infusion... W/Fat 22:00 Comprehensive LAB 01/09/25 Verified Metabolic Panel 04:00 Magnesium LAB 01/09/25 Verified 04:00 Phosphorus LAB 01/09/25 Verified 04:00 Ppn Per Pharmacy [facility] 01/08/25 In Process 22:00 Date of Service: Jan 08, 2025 Billing Provider: MICHELLE CUELLO MD Common Visit Codes: [id number] INP/OBS CARE(HIGH) MICHELLE CUELLO MD Jan 08, 2025 12:49
[2025-01-08] MEDS: MAGNESIUM SULFATE 1GM/100ML 100 ML IV ONE (13:06)
[2025-01-08] MEDS: NEUTRA-PHOS TABLET PO ONE (13:06)
[2025-01-08] MEDS: PPN PER PHARMACY IV NR (22:05)
[2025-01-09] VITALS (9 sets, daily range): BP systolic 108–125; BP diastolic 63–94; PULSE 80–113; RESP 16–22; TEMP 97.5–98.1; O2SAT 92–98
[2025-01-09 06:31] LABS: Alkaline Phosphatase 49 U/L (46-116); Anion Gap 9 (5-15); Blood Urea Nitrogen 13 mg/dL (9-23); Calcium 9.3 mg/dL (8.7-10.4); Carbon Dioxide 28 mmol/L (20-31); Chloride 100 mmol/L (98-107); Glucose 102 mg/dL (74-106); Magnesium 1.9 mg/dL (1.6-2.6); Potassium 3.9 mmol/L (3.5-5.1); Sodium 137 mmol/L (136-145)
[2025-01-09 06:33] LABS: Albumin 3.2 g/dL (3.2-4.8); Aspartate Aminotransferase 19 U/L (13-40); Phosphorus 3.6 mg/dL (2.4-5.1)
[2025-01-09 06:34] LABS: Alanine Aminotransferase < 9 U/L (7-40); Bilirubin, Total 1.3 mg/dL (0.2-1.0); Total Protein 5.3 g/dL (5.7-8.2)
--- NOTE | 2025-01-09 09:35 | DVHPN2 ---
Subjective painet npo, abd pain improving Reviewed: H&P Changes from previous H/P or p: No Changes General: Per HPI Objective Vitals Vital Signs Date Time Temp Pulse Resp B/P (MAP) Pulse Ox O2 Delivery O2 Flow Rate FiO2 01/09/25 05:00 98.1 82 19 108/94 (99) 95 98.1 01/08/25 20:00 Room Air* 0 21 Intake/Output Intake and Output 01/09/25 07:00 Intake Total 840 ml Balance 840 ml Intake Oral 240 ml IV Total 600 ml # Voids 2 # Bowel Movements 1 Exam Constitutional: Patient was alert and oriented to time, place and person and does not appear to be in acute distress Gen - no pallor, no icterus, no cyanosis, no clubbing, no LAD, no edema . Skin - Patients skin is warm and dry. HEENT - normocephalic, atraumatic, moist mucous membranes. Neck - full ROM, no LAD, no JVD Pulmonary - B/L equal air entry, right lower lung inspiratory crackles , no wheezing, no stridor. cardiovascular - regular S1,S2 heard, no added sounds, no murmurs heard. GI - soft abdomen with mild tenderness to palpation epigastric/RUQ. no hepatospleenomegaly. Bowel sounds absent Neurological - Bilateral upper extremity strength 5/5, bilateral lower extremity strength 5/5, no facial droop, normal speech, no tremor, no sensory deficiets. Medications Current Medications Medications Dose Ordered Sig/Elizabet Route Start Time Stop Time Status Last Admin Dose Admin Pantoprazole Sodium 40 mg DAILY IV 01/05/25 10:00 01/09/25 08:26 40 MG Ondansetron HCl 4 mg Q6HPRN PRN IV 01/04/25 22:00 Morphine Sulfate 2 mg Q6HPRN PRN IV 01/04/25 22:00 01/05/25 12:07 2 MG Enoxaparin Sodium 40 mg DAILY SC 01/05/25 10:00 01/08/25 09:43 40 MG Ceftriaxone Sodium 50 ml @ 100 mls/hr DAILY@09 IV 01/07/25 09:00 01/09/25 08:26 100 MLS/HR Amino Acids 0 ml @ 0 mls/hr PER PHARMACY IV 01/07/25 12:45 Diagnostic Test (Pha) 1 strip Q6HR 01/07/25 18:00 01/09/25 06:00 1 STRIP Insulin Human Regular FOLLOW SLIDING SCALE Q6HR SC 01/07/25 18:00 01/08/25 12:00 2 UNITS Dextrose 50 ml UD IV 01/07/25 13:00 Lactated Ringer's 500 ml @ 250 mls/hr Q2H IV 01/08/25 09:30 Fat Emulsion Intravenous 100 ml/Sodium Chloride 20 meq/ Sodium Phosphate 40 meq/Potassium Chloride 40 meq/ Potassium Phosphate 22 meq/ Magnesium Sulfate 12 meq/ Multivitamins 10 ml/Amino Acids/ Dextrose/Purified Water 2,053 ml @ 85 mls/hr [id number] IV 01/08/25 22:00 01/09/25 21:59 01/08/25 22:05 85 MLS/HR Laboratory Results Laboratory Tests 01/07/25 06:05 01/09/25 05:33 Chemistry Test 01/09/25 05:33 Albumin 3.2 g/dL (3.2-4.8) Calcium Level 9.3 mg/dL (8.7-10.4) Magnesium Level 1.9 mg/dL (1.6-2.6) Phosphorus Level 3.6 mg/dL (2.4-5.1) Total Protein 5.3 g/dL (5.7-8.2) L Coagulation Test 01/08/25 09:54 Prothrombin Time 11.0 sec (9.3-11.8) Prothrombin Time INR 1.04 (0.9-1.15) Activated Partial Thromboplast Time 27.4 SEC (24.5-34.5) LFT Test 01/09/25 05:33 Alanine Aminotransferase (ALT) < 9 U/L (7-40) Alkaline Phosphatase 49 U/L (46-116) Aspartate Amino Transferase (AST) 19 U/L (13-40) Total Bilirubin 1.3 mg/dL (0.2-1.0) H Urinalysis Test 01/05/25 01:57 Urine Color Yellow (Yellow) Urine Clarity Turbid (Clear) H Urine pH 5.5 (5.0-9.0) Urine Specific [place] 1.027 (1.001-1.035) Urine Protein Trace (Negative) H Urine Ketones 1+ (Negative) H Urine Blood Negative /uL (Negative) Urine Nitrite Negative (Negative) Urine Bilirubin Negative (Negative) Urine Urobilinogen 4 mg/dL (Negative) H Urine Leukocyte Esterase 3+ /uL (Negative) Urine RBC 19 /hpf (0 - 4) Urine Microscopic WBC 154 /HPF (0-5) H Urine Squamous Epithelial Cells Few /hpf (<5) Urine Calcium Oxalate Crystals Few (None Seen) Urine Bacteria None seen /hpf (None Seen) Urine Mucus Few (None Seen) Urine Glucose Trace mg/dL (Normal) Microbiology Microbiology Date/Time Source Procedure Growth Status 01/04/25 18:01 Blood Blood Culture - Preliminary NO GROWTH AFTER 72 HOURS OF INCUBATION. Resulted Labs and/or images reviewed: Labs reviewed by me, Image(s) reviewed by me Assessment/Plan Assessment/Plan Update 01/09 01/05-patient admitted for SBO, NG tube inserted on intermittent suction. Patient doing okay, still has some abdominal pain. IV fluids continuing. Pending surgical eval. 01/06- vital signs stable, NG output is decreasing, hypoactive bowel sounds,. Surgery following and wants HIDA scan tomorrow. Patient has remained NPO with NG tube on suction. No bowel movements or gas. Urine output is decreased. We will get ultrasound to evaluate for urinary obstruction/retention. Continue IV fluids for volume resuscitation with D5 half-normal saline 100 cc/hour. Continue IV Protonix daily. Lovenox for DVT prophylaxis. Keep close eye and accurate I&Os for urine output. Ceftriaxone for UTI acute complicated cystitis. Otherwise continue present treatment 01/07- patient today has absent bowel sounds. No gas or bowel movement passing. Surgery following. HIDA scan today showing failure of contrast passing from bile duct 2 small intestine, suggesting possible biliary obstruction. MRCP ordered. keep npo w NGT on Intermittent suction. PPN to start with midline today. 01/08 - remains NPO, passing gas some hypoactive bowel sounds today possibly improving. MRCP without CBD obstruction , and continuing SBO. Surgical plan for OR possible cholecystectomy, refer to surgical notes. Cardiology consulted for cardiac clearance. Pending echo. 01/09 going surgery today. cleared by card yesterday. echo done, see report. will continue surgical recs after operation. Problem list Acute abdominal pain with the vomiting, due to SBO and/or CBD obstruction CBD duct obstruction possible Surgical clearance, cleared ? Complete versus partial small-bowel obstruction ? Gastroenteritis , infectious etiology, possible Acute complicated cystitis H/o hypothyroidism Cholelithiasis Sigmoid diverticulosis S/p mechanical fall Plan - Gastrografin small bowel series -- delayed small bowel transit time, suspect partial small bowel obstruction or ileus - HIDA with possible CBD obstruction -MRCP with no biliary duct abnormalities or obstruction, noting continuing/ongoing SBO - echo done - surgical consult - ceftriaxone IV antibiotic - pending urine culture sensitivity speciation - patient was NPO with a NG tube low intermittent suction - IV Protonix and ondansetron - D5 half NS maintenance fluid -PPN started Goals of care discussed with the patient for over 31 minutes. Full code Plan discussed with: Patient My Orders Orders - MICHELLE CUELLO MD Procedure Category Date Status Time Amino Acid PHA 01/08/25 In Process Infusion... W/Fat 22:00 Ppn Per Pharmacy [facility] 01/08/25 In Process 22:00 Date of Service: Jan 09, 2025 Billing Provider: MICHELLE CUELLO MD Common Visit Codes: [id number] INP/OBS CARE(HIGH) MICHELLE CUELLO MD Jan 09, 2025 09:35
--- NOTE | 2025-01-09 09:38 | DVHSR ---
APPROVED REPORT EXAM: LIMITED Two-dimensional and M-mode echocardiogram with Doppler and color Doppler. Blood Pressure: 118/65 mmHg INDICATION Pre-Op RISK FACTORS Height: 5'2, Weight: 119 DIMENSIONS LVDd5.0 (3.8-5.7cm)LA (2D)2.6 (1.9-4.0cm)Aortic Root3.7 (2.0-3.7cm) LVDs3.7 (2.5-4.0cm)LA (MM) (1.9-4.0cm)Aortic Cusp Exc1.9 (1.5-2.0cm) EF (%) 54.0 (55-70%)Rt. Atrium (1.9-4.0cm)Asc. Aorta4.0 cm IVSd0.9 (0.7-1.1cm)RV (D) (1.8-2.4cm) PWd1.0 (0.7-1.1cm) Mitral Valve MitralMitral Stenosis E wave0.60m/sMV Mean GR.mmHg A wave1.12m/sMV Peak GR.123mmHg E/A ratio0.52D MVAcm2 DECEL [id number] 1/2 Timems Aortic Valve Aortic ValveAortic Stenosis V11.16m/Og Mean GR.mmHg V21.70m/Og Peak GR.12mmHg LVOT Diameter2.1 (1.8-2.4cm)Doppler AVA2.36cm2 Pulmonic Valve V20.97m/s Other Information Quality : Technically LimitedRhythm : Technically limited study due to body habitus.patient position. Conclusion Technically difficult study with poor cardiac visualization LVEF normal 50-55% RV function normal Mild aortic stenosis Likely moderate to severe mitral regurgitation Most valves not well visualized
[2025-01-09] MEDS ORDERED: MORPHINE SULFATE INJ 2 MG/ml SYRG IV PRN (09:45)
[2025-01-09] MEDS ORDERED: PHENYLEPHRINE HCL 10 MG/ML VL ONE (09:59)
[2025-01-09] MEDS ORDERED: ONDANSETRON HCL 4 MG/2 ML VIAL ONE (09:59)
[2025-01-09] MEDS ORDERED: LIDOCAINE 2% (LOCAL ANESTH.) PF 5ml SDV ONE (09:59)
[2025-01-09] MEDS ORDERED: fentaNYL CITRATE 100 MCG/2 ML VL ONE ×2 (09:59→10:32)
[2025-01-09] MEDS ORDERED: ROCURONIUM 10MG/ML 10ML VIAL IV ONE (09:59)
[2025-01-09] MEDS ORDERED: PROPOFOL 10 MG/ML 20 ML IV ONE (09:59)
[2025-01-09] MEDS ORDERED: DexAMETHasone SOD PHOS 10MG/1ML VIAL INJ ONE (09:59)
[2025-01-09] MEDS ORDERED: hydrALAZINE HCL 20 MG/ML VL IV PRN (10:00)
[2025-01-09] MEDS ORDERED: HYDROmorphone HCL 2 MG/ML VL/or syr IV PRN (10:00)
[2025-01-09] MEDS ORDERED: NALOXONE HCL 0.4 MG/ML VIAL IV PRN (10:00)
[2025-01-09] MEDS ORDERED: ePHEDrine SULFATE 50 MG/ML AMP IV PRN (10:00)
[2025-01-09] MEDS: FLUMAZENIL 0.1 MG/ML INJ 10ML MDV IV ONE (10:00)
[2025-01-09] MEDS: ONDANSETRON HCL 4 MG/2 ML VIAL IV ONE (10:00)
[2025-01-09] MEDS ORDERED: fentaNYL CITRATE 100 MCG/2 ML VL IV PRN (10:00)
[2025-01-09] MEDS: BUPIVACAINE 0.5% INJ 50ML VIAL IJ ONE (10:27)
--- NOTE | 2025-01-09 11:00 | DVHOP ---
DATE OF SURGERY: 01/09/2025 PREOPERATIVE DIAGNOSES: Cholelithiasis, cholecystitis. POSTOPERATIVE DIAGNOSES: Cholelithiasis, cholecystitis. SURGEON: Todd Paz MD DEVELOPER TRADING SYSTEMS: Geoff Herrera. ANESTHESIA: General endotracheal PROCEDURE: Laparoscopy, laparoscopic cholecystectomy. DESCRIPTION OF PROCEDURE: Under general endotracheal anesthesia with the patient's skin prepped and draped, a supraumbilical incision was made and a Veress needle inserted by the hanging drop technique to establish pneumoperitoneum to 15 mmHg pressure and insufflation with carbon dioxide. With the abdomen fully distended, the needle was removed and replaced with a 5 mm trocar port through which a 0-degree laparoscope was inserted. Under direct vision, additional 5 and 10-mm ports were inserted through the abdomen at the level of the umbilicus on the right side at the anterior axillary line, the 5 mm port and the 10 mm port through the subxiphoid midline skin. Instrumentation was introduced. Laparoscopy was performed revealing ileus of the small bowel; however, no evidence of bowel obstructing lesion. There was cholelithiasis and cholecystitis affecting the gallbladder. The gallbladder was placed on tension. The cystic duct and cystic artery were identified and skeletonized, traced into the hepatocystic triangle so as to minimize the potential for inadvertent injury to the common bile duct. The gallbladder was then placed on tension after the cystic duct and cystic artery were divided between metallic clips. The gallbladder was resected from its liver bed by electrocautery and traction. The fully mobilized gallbladder was removed from the peritoneal cavity through the subxiphoid 10 mm port site. The right upper quadrant was profusely irrigated and irrigant was aspirated. Hemostasis within the gallbladder bed was accomplished by electrocautery and application of small amounts of hemostatic SNoW. Following assurance of complete hemostasis, the instrumentation was withdrawn. Pneumoperitoneum was evacuated. The fascial defect was closed using 0 Vicryl. The wounds were approximated using Monocryl sutures, Dermabond glue, and Steri-Strips. The patient remained stable throughout the procedure and left the operating room following an accurate needle and sponge count. Her son, David, was thoroughly informed at [phone]. Todd Paz MD PF/SAY TID: [id number] RECEIPT: [id number]
[2025-01-09] MEDS: HYDROmorphone HCL 2 MG/ML VL/or syr IV PRN (12:04)
[2025-01-09] MEDS ORDERED: GLYCOPYRROLATE 0.2 MG/ML 1ML VIAL IV ONE (16:38)
[2025-01-09] MEDS: PPN PER PHARMACY IV NR (21:11)
[2025-01-10] VITALS (9 sets, daily range): BP systolic 105–124; BP diastolic 56–71; PULSE 84–98; RESP 17–20; TEMP 96.7–98.6; O2SAT 92–97
[2025-01-10] MEDS: HYDROcodone-ACET 5/325MG TAB PO ONE (00:32)
[2025-01-10 05:47] LABS: Basophils # (auto) 0 10 ^3/uL (0-0.2); Basophils % (auto) 0.2 % (0.0-2.0); Eosinophils # (auto) 0.2 10 ^3/uL (0-0.8); Eosinophils % (auto) 1.6 % (0.0-7.0); Hematocrit 34.5 % (36.0-46.0); Hemoglobin 12.4 g/dL (12.2-16.2); Lymphocytes # (auto) 1.8 10 ^3/uL (0.4-5.4); Lymphocytes % (auto) 14.6 % (10.0-50.0); Mean Corpuscular Hemoglobin 31.3 pg (28.0-32.0); Mean Corpuscular Volume 87.1 fL (80.0-100.0); Monocytes # (auto) 1.3 10 ^3/uL (0-1.3); Monocytes % (auto) 10.3 % (0.0-12.0); Neutrophils # (auto) 9.1 10 ^3/uL (1.6-8.6); Neutrophils % (auto) 73.3 % (37.0-80.0); Nucleated Red Blood Cells % 0.1 %; Platelet Count (auto) 181 10^3/uL (140-450); Red Blood Cells 3.96 10^6/uL (4.0-5.20); Red Cell Distribution Width 15.6 % (11.8-14.3); White Blood Cell 12.4 10^3/uL (4.4-10.8)
[2025-01-10 06:06] LABS: Alanine Aminotransferase 27 U/L (7-40); Alkaline Phosphatase 47 U/L (46-116); Anion Gap 7 (5-15); Aspartate Aminotransferase 38 U/L (13-40); BUN/Creatinine Ratio 34.2 (10.0-20.0); Blood Urea Nitrogen 13 mg/dL (9-23); Carbon Dioxide 26 mmol/L (20-31); Chloride 100 mmol/L (98-107); Magnesium 1.9 mg/dL (1.6-2.6)
[2025-01-10 06:07] LABS: Phosphorus 2.8 mg/dL (2.4-5.1)
[2025-01-10 06:26] LABS: Albumin 2.8 g/dL (3.2-4.8); Bilirubin, Total 1.3 mg/dL (0.2-1.0); Calcium 8.7 mg/dL (8.7-10.4); Glucose 134 mg/dL (74-106); Sodium 133 mmol/L (136-145); Total Protein 4.6 g/dL (5.7-8.2)
[2025-01-10] MEDS: LACTATED RINGER'S 1,000 ML IV ONE (14:14)
--- NOTE | 2025-01-10 14:49 | DVHPN2 ---
Progress Note Date Seen: Jan 10, 2025 Medical Necessity Reason Pt with a Central, PICC or Fol: No Objective vital signs Vital Sign Date Time Temp Pulse Resp B/P (MAP) Pulse Ox O2 Delivery O2 Flow Rate FiO2 01/10/25 13:00 98.6 84 17 123/71 (88) 96 98.6 01/10/25 08:00 Nasal Cannula* 2 28 Total Intake and Output 01/09/25 01/09/25 01/10/25 14:59 22:59 06:59 Intake Total 320 ml 255 ml 999 ml Balance 320 ml 255 ml 999 ml medications Current Medications Medications Dose Ordered Sig/Elizabet Route Start Time Stop Time Status Last Admin Dose Admin Pantoprazole Sodium 40 mg DAILY IV 01/05/25 10:00 01/10/25 10:05 40 MG Ondansetron HCl 4 mg Q6HPRN PRN IV 01/04/25 22:00 Enoxaparin Sodium 40 mg DAILY SC 01/05/25 10:00 01/10/25 10:05 40 MG Ceftriaxone Sodium 50 ml @ 100 mls/hr DAILY@09 IV 01/07/25 09:00 01/10/25 10:05 100 MLS/HR Amino Acids 0 ml @ 0 mls/hr PER PHARMACY IV 01/07/25 12:45 Diagnostic Test (Pha) 1 strip Q6HR 01/07/25 18:00 01/10/25 11:58 1 STRIP Insulin Human Regular FOLLOW SLIDING SCALE Q6HR SC 01/07/25 18:00 01/10/25 06:04 2 UNITS Dextrose 50 ml UD IV 01/07/25 13:00 Morphine Sulfate 2 mg Q4HPRN PRN IV 01/09/25 09:45 Fat Emulsion Intravenous 100 ml/Sodium Chloride 60 meq/ Potassium Chloride 40 meq/ Magnesium Sulfate 16 meq/ Multivitamins 10 ml/Chromium/ Copper/Manganese/ Zinc 1 ml/Amino Acids/Dextrose/ Purified Water 1,950 ml @ 81 mls/hr Q24H5M IV 01/09/25 22:00 01/10/25 21:59 01/09/25 21:11 81 MLS/HR Fat Emulsion Intravenous 150 ml/Sodium Chloride 60 meq/ Sodium Phosphate 20 meq/Potassium Chloride 40 meq/ Magnesium Sulfate 16 meq/ Multivitamins 10 ml/Chromium/ Copper/Manganese/ Zinc 1 ml/Amino Acids/Dextrose/ Purified Water 2,055 ml @ 85 mls/hr [id number] IV 01/10/25 22:00 01/11/25 21:59 Acetaminophen/ Hydrocodone Bitart 1 tab Q4HP PRN PO 01/10/25 14:45 laboratory and microbiology Laboratory Tests 01/10/25 04:58 Test 01/10/25 04:58 Range/Units Serum Glucose 134 H 74-106 mg/dL Problem List/Assessment/Plan Problem List/Assessment/Plan 01/06/25 DOES NOT FEEL WELL, ABDOMEN NON DISTENDED, MINIMALLY TENDER, HYPERBILIRUBINEMIA, LEUKOCYTOSIS, PARTIAL SMALL BOWEL OBSTRUCTION, WILL GET HIDA SCAN 01/10/25 DOING WELL ABDOMEN NOT DISTENDED, APPROPRIATELY TENDER BILIRUBIN 1.3, OK TO ADVANCE PO INTAKE Plan discussed with: Patient, Son Dietary Evaluation Review Comments: 1) Advance diet as medically feasible 2) Continue current plan of care Expected Outcomes/Goals: To meet >75% estimated needs Fu 2-3 days PAMELA CASAS MD Jan 10, 2025 14:48
--- NOTE | 2025-01-10 16:45 | DVHPN2 ---
Subjective Abd pain improving Reviewed: H&P Changes from previous H/P or p: No Changes General: Per HPI Objective Vitals Vital Signs Date Time Temp Pulse Resp B/P (MAP) Pulse Ox O2 Delivery O2 Flow Rate FiO2 01/10/25 13:00 98.6 84 17 123/71 (88) 96 98.6 01/10/25 08:00 Nasal Cannula* 2 28 Intake/Output Intake and Output 01/10/25 07:00 Intake Total 1574 ml Balance 1574 ml Intake Oral 100 ml IV Total 1474 ml # Voids 4 Exam Constitutional: Patient was alert and oriented to time, place and person and does not appear to be in acute distress Gen - no pallor, no icterus, no cyanosis, no clubbing, no LAD, no edema . Skin - Patients skin is warm and dry. HEENT - normocephalic, atraumatic, moist mucous membranes. Neck - full ROM, no LAD, no JVD Pulmonary - B/L equal air entry, right lower lung inspiratory crackles , no wheezing, no stridor. cardiovascular - regular S1,S2 heard, no added sounds, no murmurs heard. GI - soft abdomen with mild tenderness to palpation epigastric/RUQ. no hepatospleenomegaly. Bowel sounds absent Neurological - Bilateral upper extremity strength 5/5, bilateral lower extremity strength 5/5, no facial droop, normal speech, no tremor, no sensory deficiets. Medications Current Medications Medications Dose Ordered Sig/Elizabet Route Start Time Stop Time Status Last Admin Dose Admin Pantoprazole Sodium 40 mg DAILY IV 01/05/25 10:00 01/10/25 10:05 40 MG Ondansetron HCl 4 mg Q6HPRN PRN IV 01/04/25 22:00 Enoxaparin Sodium 40 mg DAILY SC 01/05/25 10:00 01/10/25 10:05 40 MG Ceftriaxone Sodium 50 ml @ 100 mls/hr DAILY@09 IV 01/07/25 09:00 01/10/25 10:05 100 MLS/HR Amino Acids 0 ml @ 0 mls/hr PER PHARMACY IV 01/07/25 12:45 Diagnostic Test (Pha) 1 strip Q6HR 01/07/25 18:00 01/10/25 11:58 1 STRIP Insulin Human Regular FOLLOW SLIDING SCALE Q6HR SC 01/07/25 18:00 01/10/25 06:04 2 UNITS Dextrose 50 ml UD IV 01/07/25 13:00 Morphine Sulfate 2 mg Q4HPRN PRN IV 01/09/25 09:45 Fat Emulsion Intravenous 100 ml/Sodium Chloride 60 meq/ Potassium Chloride 40 meq/ Magnesium Sulfate 16 meq/ Multivitamins 10 ml/Chromium/ Copper/Manganese/ Zinc 1 ml/Amino Acids/Dextrose/ Purified Water 1,950 ml @ 81 mls/hr Q24H5M IV 01/09/25 22:00 01/10/25 21:59 01/09/25 21:11 81 MLS/HR Fat Emulsion Intravenous 150 ml/Sodium Chloride 60 meq/ Sodium Phosphate 20 meq/Potassium Chloride 40 meq/ Magnesium Sulfate 16 meq/ Multivitamins 10 ml/Chromium/ Copper/Manganese/ Zinc 1 ml/Amino Acids/Dextrose/ Purified Water 2,055 ml @ 85 mls/hr [id number] IV 01/10/25 22:00 01/11/25 21:59 Acetaminophen/ Hydrocodone Bitart 1 tab Q4HP PRN PO 01/10/25 14:45 Laboratory Results Laboratory Tests 01/10/25 04:58 Chemistry Test 01/10/25 04:58 Albumin 2.8 g/dL (3.2-4.8) L Calcium Level 8.7 mg/dL (8.7-10.4) Magnesium Level 1.9 mg/dL (1.6-2.6) Phosphorus Level 2.8 mg/dL (2.4-5.1) Total Protein 4.6 g/dL (5.7-8.2) L LFT Test 01/10/25 04:58 Alanine Aminotransferase (ALT) 27 U/L (7-40) Alkaline Phosphatase 47 U/L (46-116) Aspartate Amino Transferase (AST) 38 U/L (13-40) Total Bilirubin 1.3 mg/dL (0.2-1.0) H Urinalysis Test 01/05/25 01:57 Urine Color Yellow (Yellow) Urine Clarity Turbid (Clear) H Urine pH 5.5 (5.0-9.0) Urine Specific [place] 1.027 (1.001-1.035) Urine Protein Trace (Negative) H Urine Ketones 1+ (Negative) H Urine Blood Negative /uL (Negative) Urine Nitrite Negative (Negative) Urine Bilirubin Negative (Negative) Urine Urobilinogen 4 mg/dL (Negative) H Urine Leukocyte Esterase 3+ /uL (Negative) Urine RBC 19 /hpf (0 - 4) Urine Microscopic WBC 154 /HPF (0-5) H Urine Squamous Epithelial Cells Few /hpf (<5) Urine Calcium Oxalate Crystals Few (None Seen) Urine Bacteria None seen /hpf (None Seen) Urine Mucus Few (None Seen) Urine Glucose Trace mg/dL (Normal) Microbiology Microbiology Date/Time Source Procedure Growth Status 01/04/25 18:01 Blood Blood Culture - Final NO GROWTH AFTER 5 DAYS OF INCUBATION. Complete Labs and/or images reviewed: Labs reviewed by me, Image(s) reviewed by me Assessment/Plan Assessment/Plan Update 01/10 01/05-patient admitted for SBO, NG tube inserted on intermittent suction. Patient doing okay, still has some abdominal pain. IV fluids continuing. Pending surgical eval. 01/06- vital signs stable, NG output is decreasing, hypoactive bowel sounds,. Surgery following and wants HIDA scan tomorrow. Patient has remained NPO with NG tube on suction. No bowel movements or gas. Urine output is decreased. We will get ultrasound to evaluate for urinary obstruction/retention. Continue IV fluids for volume resuscitation with D5 half-normal saline 100 cc/hour. Continue IV Protonix daily. Lovenox for DVT prophylaxis. Keep close eye and accurate I&Os for urine output. Ceftriaxone for UTI acute complicated cystitis. Otherwise continue present treatment 01/07- patient today has absent bowel sounds. No gas or bowel movement passing. Surgery following. HIDA scan today showing failure of contrast passing from bile duct 2 small intestine, suggesting possible biliary obstruction. MRCP ordered. keep npo w NGT on Intermittent suction. PPN to start with midline today. 01/08 - remains NPO, passing gas some hypoactive bowel sounds today possibly improving. MRCP without CBD obstruction , and continuing SBO. Surgical plan for OR possible cholecystectomy, refer to surgical notes. Cardiology consulted for cardiac clearance. Pending echo. 01/09 - going surgery today. cleared by card yesterday. echo done, see report. will continue surgical recs after operation. 01/10 - abdominal pain improving, still requiring some p.r.n. pain control. Abdominal bowel sounds absent today, abdominal binder on for status post lap ozzy yesterday. Today is postop day 1. Surgery following, advancing diet. Not passing any gas or bowel movement yet. We will continue to follow up. Surgical incisions with dressing CDI. Continue present treatment. Problem list Acute abdominal pain with the vomiting, due to SBO and/or CBD obstruction CBD duct obstruction possible Surgical clearance, cleared ? Complete versus partial small-bowel obstruction ? Gastroenteritis , infectious etiology, possible Acute complicated cystitis H/o hypothyroidism Cholelithiasis Sigmoid diverticulosis S/p mechanical fall Plan - Gastrografin small bowel series -- delayed small bowel transit time, suspect partial small bowel obstruction or ileus - HIDA with possible CBD obstruction -MRCP with no biliary duct abnormalities or obstruction, noting continuing/ongoing SBO - echo done - surgical consult - ceftriaxone IV antibiotic - pending urine culture sensitivity speciation - NG out after surgery 01/09 - srugery on 01/09 - lap cholecystectomy. - CLD after surgery. - advance diet 01/09 - IV Protonix and ondansetron - D5 half NS maintenance fluid -PPN hold as trying diet and hold well so far. Goals of care discussed with the patient for over 31 minutes. Full code Plan discussed with: Patient, Son My Orders Orders - MICHELLE CUELLO MD Procedure Category Date Status Time Amino Acid PHA 01/10/25 In Process Infusion... W/Fat 22:00 Comprehensive LAB 01/11/25 Verified Metabolic Panel 04:00 Magnesium LAB 01/11/25 Verified 04:00 Phosphorus LAB 01/11/25 Verified 04:00 Ppn Per Pharmacy [facility] 01/10/25 In Process 22:00 Lactated Ringer's PHA 01/10/25 In Process 14:00 Transfer Orders XFER 01/10/25 Transmitted 13:51 Pt Request For Service PT 01/10/25 Logged 13:51 Hydrocodone-Acet PHA 01/10/25 In Process 10/325mg Tab ([place] 14:45 Date of Service: Jan 10, 2025 Billing Provider: MICHELLE CUELLO MD Common Visit Codes: [id number] INP/OBS CARE(HIGH) MICHELLE CUELLO MD Jan 10, 2025 16:45
[2025-01-10] MEDS ORDERED: ACETAMINOPHEN 325 MG TAB PO PRN (17:30)
[2025-01-10] MEDS: PPN PER PHARMACY IV NR (20:49)
[2025-01-11] VITALS (9 sets, daily range): BP systolic 122–138; BP diastolic 60–88; PULSE 84–111; RESP 18–20; TEMP 98.1–98.9; O2SAT 94–99
[2025-01-11 09:08] LABS: Alanine Aminotransferase 19 U/L (7-40); Alkaline Phosphatase 51 U/L (46-116); Aspartate Aminotransferase 29 U/L (13-40); BUN/Creatinine Ratio 33.3 (10.0-20.0); Blood Urea Nitrogen 11 mg/dL (9-23); Calcium 8.7 mg/dL (8.7-10.4); Chloride 100 mmol/L (98-107); Magnesium 1.9 mg/dL (1.6-2.6); Potassium 3.7 mmol/L (3.5-5.1)
[2025-01-11 09:09] LABS: Albumin 2.9 g/dL (3.2-4.8); Bilirubin, Total 1.1 mg/dL (0.2-1.0); Glucose 110 mg/dL (74-106); Phosphorus 2.7 mg/dL (2.4-5.1); Sodium 134 mmol/L (136-145); Total Protein 4.9 g/dL (5.7-8.2)
[2025-01-11] MEDS: HYDROcodone-ACET 10/325MG TAB PO PRN (11:12)
--- NOTE | 2025-01-11 11:17 | DVHPN2 ---
Progress Note Date Seen: Jan 11, 2025 Medical Necessity Reason Pt with a Central, PICC or Fol: No Objective vital signs Vital Sign Date Time Temp Pulse Resp B/P (MAP) Pulse Ox O2 Delivery O2 Flow Rate FiO2 01/11/25 09:00 98.4 84 18 138/83 (101) 98 98.4 01/10/25 20:00 Nasal Cannula* 2 28 Total Intake and Output 01/10/25 01/10/25 01/11/25 15:00 23:00 07:00 Intake Total 50 ml 240 ml 400 ml Output Total 4 ml Balance 50 ml 240 ml 396 ml medications Current Medications Medications Dose Ordered Sig/Elizabet Route Start Time Stop Time Status Last Admin Dose Admin Pantoprazole Sodium 40 mg DAILY IV 01/05/25 10:00 01/11/25 09:39 40 MG Ondansetron HCl 4 mg Q6HPRN PRN IV 01/04/25 22:00 Enoxaparin Sodium 40 mg DAILY SC 01/05/25 10:00 01/11/25 09:40 40 MG Ceftriaxone Sodium 50 ml @ 100 mls/hr DAILY@09 IV 01/07/25 09:00 01/11/25 09:39 100 MLS/HR Amino Acids 0 ml @ 0 mls/hr PER PHARMACY IV 01/07/25 12:45 Diagnostic Test (Pha) 1 strip Q6HR 01/07/25 18:00 01/11/25 05:30 1 STRIP Insulin Human Regular FOLLOW SLIDING SCALE Q6HR SC 01/07/25 18:00 01/10/25 06:04 2 UNITS Dextrose 50 ml UD IV 01/07/25 13:00 Morphine Sulfate 2 mg Q4HPRN PRN IV 01/09/25 09:45 Fat Emulsion Intravenous 150 ml/Sodium Chloride 60 meq/ Sodium Phosphate 20 meq/Potassium Chloride 40 meq/ Magnesium Sulfate 16 meq/ Multivitamins 10 ml/Chromium/ Copper/Manganese/ Zinc 1 ml/Amino Acids/Dextrose/ Purified Water 2,055 ml @ 85 mls/hr [id number] IV 01/10/25 22:00 01/11/25 21:59 01/10/25 20:49 85 MLS/HR Acetaminophen/ Hydrocodone Bitart 1 tab Q4HP PRN PO 01/10/25 14:45 01/11/25 11:12 1 TAB Acetaminophen 650 mg Q6HP PRN PO 01/10/25 17:30 laboratory and microbiology Laboratory Tests 01/11/25 08:32 01/10/25 04:58 Test 01/11/25 08:32 Range/Units Serum Glucose 110 H 74-106 mg/dL Problem List/Assessment/Plan Problem List/Assessment/Plan 01/06/25 DOES NOT FEEL WELL, ABDOMEN NON DISTENDED, MINIMALLY TENDER, HYPERBILIRUBINEMIA, LEUKOCYTOSIS, PARTIAL SMALL BOWEL OBSTRUCTION, WILL GET HIDA SCAN 01/10/25 DOING WELL ABDOMEN NOT DISTENDED, APPROPRIATELY TENDER BILIRUBIN 1.3, OK TO ADVANCE PO INTAKE 01/11/25 AWAKE, COMFORTABLE TOLERATING PO LIQUIDS, WOUNDS CLEAN AND WELL APPROXIMATED. ABDOMEN APPROPRIATELY TENDER, OK TO ADVANCE DIET Plan discussed with: Patient Dietary Evaluation Review Comments: 1) Advance diet as medically feasible 2) Continue current plan of care Expected Outcomes/Goals: To meet >75% estimated needs Fu 2-3 days PAMELA CASAS MD Jan 11, 2025 11:17
[2025-01-11 13:01] LABS: Anion Gap 6 (5-15); Carbon Dioxide 28 mmol/L (20-31)
--- NOTE | 2025-01-11 18:05 | DVHPN2 ---
Subjective Abd pain improving Reviewed: H&P Changes from previous H/P or p: No Changes General: Per HPI Objective Vitals Vital Signs Date Time Temp Pulse Resp B/P (MAP) Pulse Ox O2 Delivery O2 Flow Rate FiO2 01/11/25 17:24 98.9 90 18 138/83 (101) 94 98.9 01/11/25 08:00 Nasal Cannula* 3 32 Intake/Output Intake and Output 01/11/25 07:00 Intake Total 690 ml Output Total 4 ml Balance 686 ml Intake Oral 640 ml IV Total 50 ml Output Urine Total 4 ml # Voids 1 Exam Constitutional: Patient was alert and oriented to time, place and person and does not appear to be in acute distress Gen - no pallor, no icterus, no cyanosis, no clubbing, no LAD, no edema . Skin - Patients skin is warm and dry. HEENT - normocephalic, atraumatic, moist mucous membranes. Neck - full ROM, no LAD, no JVD Pulmonary - B/L equal air entry, right lower lung inspiratory crackles , no wheezing, no stridor. cardiovascular - regular S1,S2 heard, no added sounds, no murmurs heard. GI - soft abdomen with mild tenderness to palpation epigastric/RUQ, incision regions. no hepatospleenomegaly. Bowel sounds present Neurological - Bilateral upper extremity strength 5/5, bilateral lower extremity strength 5/5, no facial droop, normal speech, no tremor, no sensory deficiets. Medications Current Medications Medications Dose Ordered Sig/Elizabet Route Start Time Stop Time Status Last Admin Dose Admin Pantoprazole Sodium 40 mg DAILY IV 01/05/25 10:00 01/11/25 09:39 40 MG Ondansetron HCl 4 mg Q6HPRN PRN IV 01/04/25 22:00 Enoxaparin Sodium 40 mg DAILY SC 01/05/25 10:00 01/11/25 09:40 40 MG Ceftriaxone Sodium 50 ml @ 100 mls/hr DAILY@09 IV 01/07/25 09:00 01/11/25 09:39 100 MLS/HR Amino Acids 0 ml @ 0 mls/hr PER PHARMACY IV 01/07/25 12:45 Diagnostic Test (Pha) 1 strip Q6HR 01/07/25 18:00 01/11/25 12:00 1 STRIP Insulin Human Regular FOLLOW SLIDING SCALE Q6HR SC 01/07/25 18:00 01/10/25 06:04 2 UNITS Dextrose 50 ml UD IV 01/07/25 13:00 Morphine Sulfate 2 mg Q4HPRN PRN IV 01/09/25 09:45 Fat Emulsion Intravenous 150 ml/Sodium Chloride 60 meq/ Sodium Phosphate 20 meq/Potassium Chloride 40 meq/ Magnesium Sulfate 16 meq/ Multivitamins 10 ml/Chromium/ Copper/Manganese/ Zinc 1 ml/Amino Acids/Dextrose/ Purified Water 2,055 ml @ 85 mls/hr [id number] IV 01/10/25 22:00 01/11/25 21:59 01/10/25 20:49 85 MLS/HR Acetaminophen/ Hydrocodone Bitart 1 tab Q4HP PRN PO 01/10/25 14:45 01/11/25 11:12 1 TAB Acetaminophen 650 mg Q6HP PRN PO 01/10/25 17:30 Fat Emulsion Intravenous 150 ml/Sodium Chloride 80 meq/ Potassium Chloride 10 meq/ Potassium Phosphate 22 meq/ Magnesium Sulfate 16 meq/ Multivitamins 10 ml/Chromium/ Copper/Manganese/ Zinc 1 ml/Amino Acids/Dextrose/ Purified Water 2,045 ml @ 85 mls/hr Q24H4M IV 01/11/25 22:00 01/12/25 21:59 Laboratory Results Laboratory Tests 01/10/25 04:58 01/11/25 08:32 Chemistry Test 01/11/25 08:32 Albumin 2.9 g/dL (3.2-4.8) L Calcium Level 8.7 mg/dL (8.7-10.4) Magnesium Level 1.9 mg/dL (1.6-2.6) Phosphorus Level 2.7 mg/dL (2.4-5.1) Total Protein 4.9 g/dL (5.7-8.2) L LFT Test 01/11/25 08:32 Alanine Aminotransferase (ALT) 19 U/L (7-40) Alkaline Phosphatase 51 U/L (46-116) Aspartate Amino Transferase (AST) 29 U/L (13-40) Total Bilirubin 1.1 mg/dL (0.2-1.0) H Urinalysis Test 01/05/25 01:57 Urine Color Yellow (Yellow) Urine Clarity Turbid (Clear) H Urine pH 5.5 (5.0-9.0) Urine Specific [place] 1.027 (1.001-1.035) Urine Protein Trace (Negative) H Urine Ketones 1+ (Negative) H Urine Blood Negative /uL (Negative) Urine Nitrite Negative (Negative) Urine Bilirubin Negative (Negative) Urine Urobilinogen 4 mg/dL (Negative) H Urine Leukocyte Esterase 3+ /uL (Negative) Urine RBC 19 /hpf (0 - 4) Urine Microscopic WBC 154 /HPF (0-5) H Urine Squamous Epithelial Cells Few /hpf (<5) Urine Calcium Oxalate Crystals Few (None Seen) Urine Bacteria None seen /hpf (None Seen) Urine Mucus Few (None Seen) Urine Glucose Trace mg/dL (Normal) Microbiology Microbiology Date/Time Source Procedure Growth Status 01/04/25 18:01 Blood Blood Culture - Final NO GROWTH AFTER 5 DAYS OF INCUBATION. Complete Labs and/or images reviewed: Labs reviewed by me, Image(s) reviewed by me Assessment/Plan Assessment/Plan Update 01/11 01/05-patient admitted for SBO, NG tube inserted on intermittent suction. Patient doing okay, still has some abdominal pain. IV fluids continuing. Pending surgical eval. 01/06- vital signs stable, NG output is decreasing, hypoactive bowel sounds,. Surgery following and wants HIDA scan tomorrow. Patient has remained NPO with NG tube on suction. No bowel movements or gas. Urine output is decreased. We will get ultrasound to evaluate for urinary obstruction/retention. Continue IV fluids for volume resuscitation with D5 half-normal saline 100 cc/hour. Continue IV Protonix daily. Lovenox for DVT prophylaxis. Keep close eye and accurate I&Os for urine output. Ceftriaxone for UTI acute complicated cystitis. Otherwise continue present treatment. 01/07- patient today has absent bowel sounds. No gas or bowel movement passing. Surgery following. HIDA scan today showing failure of contrast passing from bile duct 2 small intestine, suggesting possible biliary obstruction. MRCP ordered. keep npo w NGT on Intermittent suction. PPN to start with midline today. 01/08 - remains NPO, passing gas some hypoactive bowel sounds today possibly improving. MRCP without CBD obstruction , and continuing SBO. Surgical plan for OR possible cholecystectomy, refer to surgical notes. Cardiology consulted for cardiac clearance. Pending echo. 01/09 - going surgery today. cleared by card yesterday. echo done, see report. will continue surgical recs after operation. 01/10 - abdominal pain improving, still requiring some p.r.n. pain control. Abdominal bowel sounds absent today, abdominal binder on for status post lap ozzy yesterday. Today is postop day 1. Surgery following, advancing diet. Not passing any gas or bowel movement yet. We will continue to follow up. Surgical incisions with dressing CDI. Continue present treatment. 01/11 - advance diet. continue to monitor. improving Bowel sounds. tenderness as appropriate given POD 2. surgery following, appreciate recommendations. Problem list Acute abdominal pain with the vomiting, due to SBO and/or CBD obstruction CBD duct obstruction possible Surgical clearance, cleared ? Complete versus partial small-bowel obstruction ? Gastroenteritis , infectious etiology, possible Acute complicated cystitis H/o hypothyroidism Cholelithiasis Sigmoid diverticulosis S/p mechanical fall Plan - Gastrografin small bowel series -- delayed small bowel transit time, suspect partial small bowel obstruction or ileus - HIDA with possible CBD obstruction -MRCP with no biliary duct abnormalities or obstruction, noting continuing/ongoing SBO - echo done - surgical consult - ceftriaxone IV antibiotic - pending urine culture sensitivity speciation - NG out after surgery 01/09 - srugery on 01/09 - lap cholecystectomy. - CLD after surgery. - advance diet 01/09 - IV Protonix and ondansetron - D5 half NS maintenance fluid -PPN hold as trying diet and hold well so far. Goals of care discussed with the patient for over 31 minutes. Full code Plan discussed with: Patient My Orders Orders - MICHELLE CUELLO MD Procedure Category Date Status Time Full Liq Diet DIET 01/11/25 Transmitted Lunch Amino Acid PHA 01/11/25 In Process Infusion... W/Fat 22:00 Date of Service: Jan 11, 2025 Billing Provider: MICHELLE CUELLO MD Common Visit Codes: [id number] INP/OBS CARE(HIGH) MICHELLE CUELLO MD Jan 11, 2025 18:04
[2025-01-11] MEDS: FAT EMULSION IV NR (21:38)
[2025-01-11] MEDS: POTASSIUM CHLORIDE IV NR (21:38)
[2025-01-11] MEDS: [UNRECOGNIZED DRUG - OTHER] IV NR (21:38)
[2025-01-11] MEDS: SODIUM CHLORIDE IV NR (21:38)
[2025-01-12 01:00] VITALS: BP 107/58; PULSE 91; RESP 18; TEMP 97.8; O2SAT 100
[2025-01-12 05:00] VITALS: BP 121/67; PULSE 84; RESP 18; TEMP 97.5; O2SAT 99
[2025-01-12 06:06] LABS: Anion Gap 7 (5-15); Carbon Dioxide 28 mmol/L (20-31); Chloride 100 mmol/L (98-107)
[2025-01-12 06:08] LABS: Calcium 9.3 mg/dL (8.7-10.4)
[2025-01-12 06:12] LABS: BUN/Creatinine Ratio 25.7 (10.0-20.0); Glucose 97 mg/dL (74-106)
[2025-01-12 06:15] LABS: Blood Urea Nitrogen 9 mg/dL (9-23); Sodium 135 mmol/L (136-145)
[2025-01-12 08:00] VITALS: PULSE 83
--- NOTE | 2025-01-12 08:46 | DVHPN2 ---
Progress Note Date Seen: Jan 12, 2025 Medical Necessity Reason Pt with a Central, PICC or Fol: No Objective vital signs Vital Sign Date Time Temp Pulse Resp B/P (MAP) Pulse Ox O2 Delivery O2 Flow Rate FiO2 01/12/25 05:00 97.5 84 18 121/67 (85) 99 97.5 01/11/25 19:44 Nasal Cannula* 3 32 Total Intake and Output 01/11/25 01/11/25 01/12/25 15:00 23:00 07:00 Intake Total 50 ml 1650 ml 0 ml Balance 50 ml 1650 ml 0 ml medications Current Medications Medications Dose Ordered Sig/Elizabet Route Start Time Stop Time Status Last Admin Dose Admin Pantoprazole Sodium 40 mg DAILY IV 01/05/25 10:00 01/11/25 09:39 40 MG Ondansetron HCl 4 mg Q6HPRN PRN IV 01/04/25 22:00 Enoxaparin Sodium 40 mg DAILY SC 01/05/25 10:00 01/11/25 09:40 40 MG Ceftriaxone Sodium 50 ml @ 100 mls/hr DAILY@09 IV 01/07/25 09:00 01/11/25 09:39 100 MLS/HR Amino Acids 0 ml @ 0 mls/hr PER PHARMACY IV 01/07/25 12:45 Diagnostic Test (Pha) 1 strip Q6HR 01/07/25 18:00 01/12/25 05:39 1 STRIP Insulin Human Regular FOLLOW SLIDING SCALE Q6HR SC 01/07/25 18:00 01/10/25 06:04 2 UNITS Dextrose 50 ml UD IV 01/07/25 13:00 Morphine Sulfate 2 mg Q4HPRN PRN IV 01/09/25 09:45 Acetaminophen/ Hydrocodone Bitart 1 tab Q4HP PRN PO 01/10/25 14:45 01/11/25 11:12 1 TAB Acetaminophen 650 mg Q6HP PRN PO 01/10/25 17:30 Fat Emulsion Intravenous 150 ml/Sodium Chloride 80 meq/ Potassium Chloride 10 meq/ Potassium Phosphate 22 meq/ Magnesium Sulfate 16 meq/ Multivitamins 10 ml/Chromium/ Copper/Manganese/ Zinc 1 ml/Amino Acids/Dextrose/ Purified Water 2,045 ml @ 85 mls/hr Q24H4M IV 01/11/25 22:00 01/12/25 21:59 laboratory and microbiology Laboratory Tests 01/12/25 04:43 01/10/25 04:58 Test 01/12/25 04:43 Range/Units Serum Glucose 97 74-106 mg/dL Problem List/Assessment/Plan Problem List/Assessment/Plan 01/06/25 DOES NOT FEEL WELL, ABDOMEN NON DISTENDED, MINIMALLY TENDER, HYPERBILIRUBINEMIA, LEUKOCYTOSIS, PARTIAL SMALL BOWEL OBSTRUCTION, WILL GET HIDA SCAN 01/10/25 DOING WELL ABDOMEN NOT DISTENDED, APPROPRIATELY TENDER BILIRUBIN 1.3, OK TO ADVANCE PO INTAKE 01/11/25 AWAKE, COMFORTABLE TOLERATING PO LIQUIDS, WOUNDS CLEAN AND WELL APPROXIMATED. ABDOMEN APPROPRIATELY TENDER, OK TO ADVANCE DIET 01/12/25 awake, oriented, no nausea, poor appetite, wounds c;lean and well approximated, abdomen non tender, frtom surgical point of view she is cleared for discharge, I need to see her in one week in the office Plan discussed with: Patient Dietary Evaluation Review Comments: 1) Advance diet as medically feasible 2) Continue current plan of care Expected Outcomes/Goals: To meet >75% estimated needs Fu 2-3 days PAMELA CASAS MD Jan 12, 2025 08:46
[2025-01-12 09:00] VITALS: BP 102/64; PULSE 56; RESP 20; TEMP 97.5; O2SAT 97
[2025-01-12 13:00] VITALS: BP 92/62; PULSE 78; RESP 20; TEMP 97.5; O2SAT 94
[2025-01-12 13:32] LABS: Magnesium 1.8 mg/dL (1.6-2.6)
[2025-01-12 13:33] LABS: Phosphorus 3.9 mg/dL (2.4-5.1)
[2025-01-12] MEDS ORDERED: AUG875T PO (13:53)
[2025-01-12] MEDS ORDERED: HYDR-4902 PO (13:53)
--- NOTE | 2025-01-12 14:01 | DVHDS2 ---
Discharge Summary Date of Admission Jan 04, 2025 at 19:33 Date of Discharge: Jan 12, 2025 Labs/Diagnostic Data: Laboratory Results Test 01/12/25 11:17 01/12/25 04:43 01/11/25 08:32 01/10/25 04:58 POC Glucose 108 mg/dl (70-106) Sodium Level 135 mmol/L (136-145) Potassium Level 4.0 mmol/L (3.5-5.1) Chloride Level 100 mmol/L (98-107) Carbon Dioxide Level 28 mmol/L (20-31) Anion Gap 7 (5-15) Blood Urea Nitrogen 9 mg/dL (9-23) Creatinine 0.35 mg/dL (0.550-1.02) Glomerular Filtration Rate Calc 98 mL/min (>90) BUN/Creatinine Ratio 25.7 (10.0-20.0) Serum Glucose 97 mg/dL (74-106) Calcium Level 9.3 mg/dL (8.7-10.4) Phosphorus Level 3.9 mg/dL (2.4-5.1) Magnesium Level 1.8 mg/dL (1.6-2.6) Total Bilirubin 1.1 mg/dL (0.2-1.0) Aspartate Amino Transferase (AST) 29 U/L (13-40) Alanine Aminotransferase (ALT) 19 U/L (7-40) Alkaline Phosphatase 51 U/L (46-116) Total Protein 4.9 g/dL (5.7-8.2) Albumin 2.9 g/dL (3.2-4.8) White Blood Count 12.4 10^3/uL (4.4-10.8) Red Blood Count 3.96 10^6/uL (4.0-5.20) Hemoglobin 12.4 g/dL (12.2-16.2) Hematocrit 34.5 % (36.0-46.0) Mean Corpuscular Volume 87.1 fL (80.0-100.0) Mean Corpuscular Hemoglobin 31.3 pg (28.0-32.0) Mean Corpuscular Hemoglobin Concent 36.0 g/dL (32.0-36.0) Red Cell Distribution Width 15.6 % (11.8-14.3) Platelet Count 181 10^3/uL (140-450) Mean Platelet Volume 8.7 fL (6.9-10.8) Neutrophils (%) (Auto) 73.3 % (37.0-80.0) Lymphocytes (%) (Auto) 14.6 % (10.0-50.0) Monocytes (%) (Auto) 10.3 % (0.0-12.0) Eosinophils (%) (Auto) 1.6 % (0.0-7.0) Basophils (%) (Auto) 0.2 % (0.0-2.0) Neutrophils # (Auto) 9.1 10 ^3/uL (1.6-8.6) Lymphocytes # (Auto) 1.8 10 ^3/uL (0.4-5.4) Monocytes # (Auto) 1.3 10 ^3/uL (0-1.3) Eosinophils # (Auto) 0.2 10 ^3/uL (0-0.8) Basophils # (Auto) 0 10 ^3/uL (0-0.2) Nucleated Red Blood Cells 0.1 % Test 01/08/25 09:54 01/07/25 06:05 01/05/25 01:57 01/04/25 19:40 Prothrombin Time 11.0 sec (9.3-11.8) Prothrombin Time INR 1.04 (0.9-1.15) Activated Partial Thromboplast Time 27.4 SEC (24.5-34.5) Triglycerides Level 100 mg/dL (< 150) Urine Color Yellow (Yellow) Urine Clarity Turbid (Clear) Urine pH 5.5 (5.0-9.0) Urine Specific [place] 1.027 (1.001-1.035) Urine Protein Trace (Negative) Urine Ketones 1+ (Negative) Urine Blood Negative /uL (Negative) Urine Nitrite Negative (Negative) Urine Bilirubin Negative (Negative) Urine Urobilinogen 4 mg/dL (Negative) Urine Leukocyte Esterase 3+ /uL (Negative) Urine RBC 19 /hpf (0 - 4) Urine Microscopic WBC 154 /HPF (0-5) Urine Squamous Epithelial Cells Few /hpf (<5) Urine Calcium Oxalate Crystals Few (None Seen) Urine Bacteria None seen /hpf (None Seen) Urine Mucus Few (None Seen) Urine Glucose Trace mg/dL (Normal) Troponin I High Sensitivity 7 ng/L (</=34) Test 01/04/25 18:01 Lactic Acid Level 1.9 mmol/L (0.4-2.0) Lipase 17 U/L (12-53) Thyroid Stimulating Hormone (TSH) 1.27 uIU/mL (0.55-4.78) Other Laboratory Tests 01/12/25 04:43 01/10/25 04:58 Brief Hx & Hospital Course: Summary: Patient admitted for acute abdominal pain. No passing any bowel movement/gas, distended abdomen. On admission labs patient has neutrophilia, leukocytosis, T bili mildly elevated 1.9, UA SG 1.027 concentrated, ketosis mild +1, some concern for UTI with leukocyte esterase positive WBC elevated but no bacteria. On imaging CT concerning for bowel obstruction (dilated small bowel loops, transition point right lower quadrant, sigmoid diverticulosis without diverticulitis, cholelithiasis without cholecystitis).. Gastrografin small bowel series with delayed transition suspected small-bowel obstruction or ileus. HIDA scan with possible CBD obstruction. MRCP with no biliary duct abnormalities but ongoing SBO. Surgery is onboard and evaluated patient. Cardiology was consulted to get cardiac clearance for surgery and clearance was obtained, echocardiogram with largely unconcerning findings (EF 55%, mild aortic stenosis, mild to severe mitral regurg). Patient was taken to surgery on 01/09 for lap cholecystectomy. NG tube initially was inserted removed proximally 500 to 600 cc over 3 days bilious nonbloody output. NG was removed after surgery in diet was advanced. Postop day 2 has improving bowel sounds and surgery advance his diet which patient tolerates well.. Diagnosis: symptomatic cholelithiasis, status post laparoscopic cholecystectomy ? Complete versus partial small-bowel obstruction, possible, resolved ? Gastroenteritis , infectious etiology, possible, resolved Acute abdominal pain with the vomiting, due to above, resolved Surgical clearance, cleared For surgery Acute complicated cystitis Intravascular volume depletion Ketosis Transaminitis, mild Neutrophilia, resolved Leukocytosis, resolved H/o hypothyroidism Cholelithiasis Sigmoid diverticulosis S/p mechanical fall Discharge plan: - take Augmentin 875 mg twice daily for 5 days -For pain control 1st line OTC Tylenol, second-line prescription [place] 5 up to 3 times daily as needed -Full liquid diet up to 1 week and advance as tolerated thereafter - follow up with the home physical therapy. Home health for physical therapy and for medication management. -Follow up with surgery for suture removal and ongoing care /follow up -Follow up with PCP to review discharge -Continue other home medications not mentioned above Condition at Discharge: Fair Final Diagnosis/Problems List symptomatic cholelithiasis, status post laparoscopic cholecystectomy ? Complete versus partial small-bowel obstruction, possible, resolved ? Gastroenteritis , infectious etiology, possible, resolved Acute abdominal pain with the vomiting, due to above, resolved Surgical clearance, cleared For surgery Acute complicated cystitis Intravascular volume depletion Ketosis Transaminitis, mild Neutrophilia, resolved Leukocytosis, resolved H/o hypothyroidism Cholelithiasis Sigmoid diverticulosis S/p mechanical fall Discharge Disposition: Home with Health Services Discharge Instruct/Medications Diet: See Comment Diet comment: See discharge instructions below Activity: No Restrictions, As Tolerated Follow Up/Referral: See discharge instructions below Medications: See discharge instructions below Discharge Statement: "Patient was advised to return to the ER or call 911 if any headaches, dizziness, shortness of breath, chest pain, abdominal pain, bleeding, fevers, or worsening of medical condition. Patient was counseled about treatment plan, medications, possible side effects, patientverbalized understanding. All questions were answered to the best of my ability. This discharge took greater then 30 minutes in planning, reviewing documentation, counseling the patient, and discussing with other team members." Date of Service: Jan 12, 2025 Billing Provider: MICHELLE CUELLO MD Common Visit Codes: 42973-GAX/OBS DISCH DAY >30min MICHELLE CUELLO MD Jan 12, 2025 14:01
[2025-01-12 14:31] VITALS: BP 92/62; PULSE 78; RESP 20; TEMP 97.5; O2SAT 94
[2025-01-12] MEDS ORDERED: PPN PER PHARMACY IV NR (22:00)
== END 2025-01-12 16:42 | disposition home health service (06) | DRG 357 ==
LOC: EDUNIT# 16:01 → EDBD 16:01 → ER 16:03 → OVERFLOW 19:33 → WEST WING 19:57 → ER 21:53 → WEST WING 22:30 → TELE-WESTW 01-09 11:50
PROVIDERS: ADMIT Student in an Organized Health Care Education/Training Program; ATTEND Student in an Organized Health Care Education/Training Program
PROC: 0FT44ZZ Resection of Gallbladder, Percutaneous Endoscopic Approach (ICD-10-PCS; principal; 2025-01-04)
PROC: 0D9670Z Drainage of Stomach with Drainage Device, Via Natural or Artificial Opening (ICD-10-PCS; 2025-01-04)
DX: A09 Infectious gastroenteritis and colitis, unspecified (principal); K56.7 Ileus, unspecified; N30.00 Acute cystitis without hematuria; R65.10 Systemic inflammatory response syndrome (SIRS) of non-infectious origin without acute organ dysfunction; K80.20 Calculus of gallbladder without cholecystitis without obstruction; K57.30 Diverticulosis of large intestine without perforation or abscess without bleeding; E03.9 Hypothyroidism, unspecified; E78.5 Hyperlipidemia, unspecified; E86.9 Volume depletion, unspecified; K21.9 Gastro-esophageal reflux disease without esophagitis; E80.6 Other disorders of bilirubin metabolism; R74.01 Elevation of levels of liver transaminase levels; E88.89 Other specified metabolic disorders; Z79.899 Other long term (current) drug therapy
CPT/HCPCS: 36415; 70450; 71045; 74176; 74181; 74250; 78226; 80048; 80053; 81001; 82962; 83605; 83690; 83735; 84100; 84443; 84478; 84484; 85025; 85610; 85730; 86850; 86900; 86901; 87040; 93005; 93306; 97163; G0378; J1100; J1815; J2003; J2405; J2470; J2704; J3490; J7042; J7131